=== PATIENT | female | born 1955 | race Caucasian/White ===

== ENCOUNTER 2018-12-24 19:00 | Outpatient (CLI) | payer MEDICAID ==
[2015-02-03 13:13] VITALS: BMI 30.6
[~2018-12-24 19:00] MED LIST: CYMBALTA60 MG PO; NEURONTIN 300300 MG PO; REQUIP4 MG PO
== END 2018-12-24 23:59 | disposition home or self-care (01) ==
LOC: D.MAMMO 19:00
PROVIDERS: ATTEND Family Medicine
DX: Z12.31 Encounter for screening mammogram for malignant neoplasm of breast (principal)

== ENCOUNTER 2019-01-21 17:49 | Outpatient (CLI) | payer MEDICAID ==
[2015-02-03 13:13] VITALS: BMI 30.6
== END 2019-01-21 17:50 | disposition home or self-care (01) ==
LOC: D.MAMMO 17:49
PROVIDERS: ATTEND Family Medicine
DX: R92.8 Other abnormal and inconclusive findings on diagnostic imaging of breast (principal)

== ENCOUNTER 2019-02-11 05:00 | Inpatient (IN) | payer MEDICAID ==
[2019-02-10 10:06] LABS: BASOPHILS 0.5 % (0-2); EOSINOPHILS 2.7 % (0-7); HEMATOCRIT 40.9 % (36.0-48.0); HEMOGLOBIN 13.6 g/dL (12-16); IMMATURE GRANULOCYTES 0.5 % (0-5); LYMPHOCYTES 34.4 % (15-50); MCH 31.9 pg (26.0-34.0); MCHC 33.3 g/dL (31.0-37.0); MEAN PLATELET VOLUME 8.8 fL (7.4-10.4); MONOCYTES 6.9 % (2-11); PLATELET COUNT 267 10x3/uL (130-400); RBC 4.26 10x6/uL (4.00-5.40); RDW 13.7 % (11.5-14.5); WBC 9.4 10x3/uL (4.8-10.8)
[2019-02-10 10:16] LABS: APPEARANCE CLEAR (CLEAR); BILIRUBIN NEGATIVE (NEGATIVE); COLOR STRAW (YELLOW); GLUCOSE NEGATIVE (NEGATIVE); KETONE NEGATIVE (NEGATIVE); NITRITE NEGATIVE (NEGATIVE); PROTEIN NEGATIVE (NEGATIVE); SPECIFIC GRAVITY 1.005 (1.005-1.020); UROBILINOGEN NORMAL (NORMAL)
[2019-02-10 10:19] LABS: APTT 27.3 SECONDS (22.8-39.4); INR 1.09 (0.85-1.17); PROTIME 13.6 SECONDS (11.6-15.0)
[2019-02-10 10:26] LABS: CALC OSMOLALITY 281 mosm/kg (275-300); CALCIUM 9.1 mg/dL (8.5-10.1); CARBON DIOXIDE 28.4 mmol/L (21.0-32.0); CHLORIDE - SERUM 105 mmol/L (98-107); CREATININE - SERUM 0.7 mg/dL (0.6-1.3); GLUCOSE 103 mg/dL (74-106); POTASSIUM - SERUM 4.2 mmol/L (3.5-5.1); SODIUM 141 mmol/L (136-145); UREA NITROGEN 16 mg/dL (7-18); eGFR NON AFRICAN AMERICAN 90 mL/min (90-120)
[2019-02-10 19:11] LABS: ALBUMIN 3.6 g/dL (3.4-5.0); ALKALINE PHOSPHATASE 138 U/L (46-116); ALT (SGPT) 32 U/L (10-68); BILIRUBIN - TOTAL 0.16 mg/dL (0.2-1.3); PROTEIN - SERUM 7.9 g/dL (6.4-8.2)
[2019-02-11] VITALS (7 sets, daily range): BP systolic 100–129; BP diastolic 58–67; BMI 29.6; BMI 28.4
[~2019-02-11 05:00] MED LIST changes: +IBUPROFEN200 MG PO
--- NOTE | 2019-02-11 15:15 | OP ---
PATIENT NAME: DANIELLE LINDSEY MEDICAL RECORD: [id number] :57 LOCATION:D.MS [id number] ADMISSION DATE:02/11/19 SURGEON: SALVATORE ASCENCIO DO DATE OF OPERATION: 02/11/2019 PROCEDURE PERFORMED: Right reverse total shoulder. PREOPERATIVE DIAGNOSIS: Right shoulder rotator cuff arthropathy. POSTOPERATIVE DIAGNOSES: Right shoulder rotator cuff arthropathy with intraoperative humeral shaft fracture. INDICATIONS: Ms. Lindsey is a 64-year-old right-hand dominant patient who had an MRI, which showed a rotator cuff tear and she also had on x-ray severe osteoarthritis of the shoulder. The rotator cuff tear was on the supraspinatus, it was retracted. I informed her that my nurse practitioner has seen her and that due to her arthritis and the rotator cuff tear and retraction, a reverse would be the best option for her. She was okay with that and was aware of the risks and benefits of the procedure including fracture, infection, bleeding, damage to nerves and vessels, and need for further surgery and she signed the consent. SURGEON: Salvatore Ascencio DO NUCLEAR MEDICINE TECHNOLOGIST: I was assisted by Vargas Arreola, advancement nurse practitioner. This could not have been performed without his help. He helped with retraction and closing. DESCRIPTION OF PROCEDURE: The patient was given a block by anesthesia in the preoperative area and taken to the operative suite, given 900 mg clindamycin. A timeout was performed, everyone was in agreement with the correct side, site, patient, and procedure. She was positioned on the beach chair table. She had been intubated prior to positioning. Once timeout had been performed and she was prepped and draped in the right shoulder, incision began over the deltopectoral interval. Careful dissection was made down to the interval. The adhesions were then taken out from under the deltoid with a Gonzalez and then the Brown retractor was placed there. The bicep tendon after the clavipectoral fascia was released. Biceps tendon was encountered and tagged and tied to the stump of the pec. The pec was released to a proximal centimeter or so and then the bicep was taken out. It opened up the rotator interval at that time and the subscapularis tendon was tagged. Once it was tagged, it was peeled off the humerus and opened up the osteophytes that were then removed off the inferior humeral head and then the glenoid was exposed. Once the glenoid was exposed, labrum was removed as well as the biceps tendon that was left and then centering pin was used to center in the glenoid. The reamer was then used and the baseplate hole was drilled, measured to be a 35. The 35 mm, 6.5 screw was put in with a 25 baseplate. This had good bite and then 3 peripheral screws were put in superiorly 26, anteriorly 18, and posteriorly 22. We then used the reamer around that to ensure the lateralized sphere would fit, it did. The lateralized sphere was then impacted on and screwed into place. The humerus was then exposed. Broaching began up to a 5, the 5 was trialled and reduced. Once it was reduced, getting the shoulder dislocated again, the humerus fractured just distal to the stem. Upon knowing that the stem was removed and the cables were placed around the humerus. I went to a fracture stem. The cement restrictor was then put down the canal, cemented down the canal, and the cement OPERATIVE REPORT [id number] DANIELLE LINDSEY came out of the fracture site. This was all removed. The stem was put into place. We did cement the proximal part of the stem and then the fracture was re-reduced once the stem was in and correctly positioned and the cement was hardening. Cables were placed around this prior. The fracture was reduced and then the cables were put around, 2, around the fracture site 1.6 cables. They became loose when the cement came down, one another cable was then placed around it after the stem had been put down and held into place. The fracture was reduced and then one of the previous cables were loose. This was cut. The other cable was left in place and then another cable, 2.0 cable, was put around the more proximal part of the shaft. This was very stable as well as the fracture, it was ranged. X-ray was taken and seems to have good reduction of the fracture and the stem was in good position. It did not move and it was reduced onto the glenosphere and then x-rays were taken to ensure the fracture, nondisplaced with the stem, it did not. She had good range of motion with this and any bleeding was coagulated with Aquamantys throughout the procedure. We then irrigated thoroughly. A drain was put in and Surgicel powder was put in as well as vancomycin, tobramycin powder. The incision did have to be extended to fix the fracture. The skin was then closed with 2-0 Vicryl in inverted interrupted fashion, 4-0 Monocryl ran on the skin and Prineo on the skin. The patient was awakened and taken to recovery in stable condition. Blood loss was approximately 200 mL. COMPLICATIONS: Intraoperative humeral shaft fracture. TRANSINT:[id number] Voice Confirmation ID: [id number] DOCUMENT ID: [id number] SALVATORE ASCENCIO DO at 1515 CC: [id number] DICTATION DATE: 02/11/19 1017 SENIOR SHAREPOINT ARCHITECT: 02/11/19 1503 ADM IN [facility] [address] [place] [address]
[2019-02-11 16:12] LABS: BASOPHILS 0.1 % (0-2); EOSINOPHILS 0 % (0-7); HEMATOCRIT 35.9 % (36.0-48.0); HEMOGLOBIN 11.7 g/dL (12-16); IMMATURE GRANULOCYTES 0.3 % (0-5); LYMPHOCYTES 5.8 % (15-50); MCH 31.5 pg (26.0-34.0); MCHC 32.6 g/dL (31.0-37.0); MCV 96.5 fL (80.0-100.0); MEAN PLATELET VOLUME 9.1 fL (7.4-10.4); MONOCYTES 1.8 % (2-11); PLATELET COUNT 229 10x3/uL (130-400); RBC 3.72 10x6/uL (4.00-5.40); RDW 13.5 % (11.5-14.5)
[2019-02-11 16:22] LABS: WBC 14.3 10x3/uL (4.8-10.8)
[2019-02-11 16:38] LABS: ALBUMIN 2.9 g/dL (3.4-5.0); ANION GAP 12.6 mmol/L (8-16); BILIRUBIN - TOTAL 0.24 mg/dL (0.2-1.3); CARBON DIOXIDE 24.9 mmol/L (21.0-32.0); POTASSIUM - SERUM 4.5 mmol/L (3.5-5.1); PROTEIN - SERUM 6.3 g/dL (6.4-8.2)
[2019-02-12 05:09] VITALS: BP 121/60
[2019-02-12 05:18] LABS: BASOPHILS 0.1 % (0-2); EOSINOPHILS 0 % (0-7); HEMATOCRIT 34.2 % (36.0-48.0); IMMATURE GRANULOCYTES 0.3 % (0-5); LYMPHOCYTES 11.1 % (15-50); MCH 31.1 pg (26.0-34.0); MCHC 32.2 g/dL (31.0-37.0); MCV 96.6 fL (80.0-100.0); MEAN PLATELET VOLUME 9.4 fL (7.4-10.4); MONOCYTES 6.9 % (2-11); NEUTROPHILS 81.6 % (40-80); PLATELET COUNT 249 10x3/uL (130-400); RBC 3.54 10x6/uL (4.00-5.40); RDW 13.6 % (11.5-14.5); WBC 17.3 10x3/uL (4.8-10.8)
[2019-02-12 05:38] LABS: ALBUMIN 2.7 g/dL (3.4-5.0); ALKALINE PHOSPHATASE 111 U/L (46-116); ALT (SGPT) 62 U/L (10-68); BILIRUBIN - TOTAL 0.14 mg/dL (0.2-1.3); CALCIUM 7.6 mg/dL (8.5-10.1); CARBON DIOXIDE 26.9 mmol/L (21.0-32.0); CHLORIDE - SERUM 107 mmol/L (98-107); POTASSIUM - SERUM 3.9 mmol/L (3.5-5.1); PROTEIN - SERUM 6.1 g/dL (6.4-8.2); SODIUM 142 mmol/L (136-145); UREA NITROGEN 15 mg/dL (7-18)
[2019-02-12 06:07] LABS: CALC OSMOLALITY 290 mosm/kg (275-300); CREATININE - SERUM 0.7 mg/dL (0.6-1.3); GLUCOSE 221 mg/dL (74-106); eGFR NON AFRICAN AMERICAN 90 mL/min (90-120)
[2019-02-12 09:23] VITALS: BP 143/50
[2019-02-12 13:43] VITALS: BMI 28.3
[2019-02-12 14:17] VITALS: BP 156/84
[2019-02-12 18:07] VITALS: BP 138/68
[2019-02-12 20:07] LABS: APPEARANCE CLEAR (CLEAR); BILIRUBIN NEGATIVE (NEGATIVE); COLOR YELLOW (YELLOW); GLUCOSE NEGATIVE (NEGATIVE); KETONE NEGATIVE (NEGATIVE); NITRITE NEGATIVE (NEGATIVE); PROTEIN NEGATIVE (NEGATIVE); UROBILINOGEN NORMAL (NORMAL)
[2019-02-12 22:28] VITALS: BP 108/55
[2019-02-13 05:02] VITALS: BP 112/64
[2019-02-13 05:35] LABS: BASOPHILS 0.3 % (0-2); EOSINOPHILS 1.2 % (0-7); HEMATOCRIT 35.1 % (36.0-48.0); HEMOGLOBIN 11.4 g/dL (12-16); IMMATURE GRANULOCYTES 0.6 % (0-5); LYMPHOCYTES 23.6 % (15-50); MCH 31.7 pg (26.0-34.0); MCHC 32.5 g/dL (31.0-37.0); MCV 97.5 fL (80.0-100.0); MEAN PLATELET VOLUME 9.3 fL (7.4-10.4); MONOCYTES 7.1 % (2-11); NEUTROPHILS 67.2 % (40-80); PLATELET COUNT 253 10x3/uL (130-400); RDW 13.8 % (11.5-14.5)
[2019-02-13 06:09] LABS: ALBUMIN 2.8 g/dL (3.4-5.0); ALKALINE PHOSPHATASE 93 U/L (46-116); ALT (SGPT) 67 U/L (10-68); BILIRUBIN - TOTAL 0.37 mg/dL (0.2-1.3); CALCIUM 8.1 mg/dL (8.5-10.1); CARBON DIOXIDE 29.3 mmol/L (21.0-32.0); CHLORIDE - SERUM 106 mmol/L (98-107); CREATININE - SERUM 0.7 mg/dL (0.6-1.3); POTASSIUM - SERUM 4.2 mmol/L (3.5-5.1); PROTEIN - SERUM 6.4 g/dL (6.4-8.2); SODIUM 141 mmol/L (136-145); UREA NITROGEN 14 mg/dL (7-18); eGFR NON AFRICAN AMERICAN 90 mL/min (90-120)
[2019-02-13 06:11] LABS: CALC OSMOLALITY 282 mosm/kg (275-300); GLUCOSE 121 mg/dL (74-106)
[2019-02-13 08:20] VITALS: BP 161/55
[2019-02-13 12:26] VITALS: BP 139/62
[2019-02-13 14:44] VITALS: BP 155/58
--- NOTE | 2019-02-13 15:57 | MORECARE ---
CASE MANAGEMENT DISCHARGE SUMMARY PATIENT: DANIELLE GARCIA UNIT: [id number] ADM DATE: 02/11/19 AGE: 64 : 57 SEX: F ROOM/BED: D.2208 AUTHOR: SWAPNA WILL PHYSICIAN: REFERRING PHYSICIAN: SALVATORE ASCENCIO DO DATE OF SERVICE: 02/13/19 Discharge Plan Patient Name: DANIELLE GARCIA [facility] [facility] 1955 Planned Disposition: Home Anticipated Discharge Date: Discharge Date: Expected LOS: Initial Reviewer: [email or web address] Initial Review Date: 02/11/2019 Generated: 02/13/19 4:57 pm DCPIA - Discharge Planning Initial Assessment Updated by [email or web address]: Shabana Forte on 02/13/19 3:57 pm * Is the patient Alert and Oriented? Yes * How many steps to enter\exit or inside your home? ramp * PCP SATURNINO * Pharmacy [facility] [address] * Preadmission Environment Home with Family * ADLs Independent * Equipment Bedside Commode Cane Elevated Toliet Seat Rolling Walker Shower Chair Tub Bench Walker Wheelchair * List name and contact numbers for known caregivers / representatives who currently or will assist patient after discharge: ALEX (DAUGHTER) [phone] * Verbal permission to speak to the caregivers and representatives has been obtained from the patient. N/A * Community resources currently utilized None * Additional services required to return to the preadmission environment? No * Can the patient safely return to the preadmission environment? Yes * Has this patient been hospitalized within the prior 30 days at any hospital? No Patient Name: DANIELLE GARCIA Page 17792 at 1557 All edits/amendments must be made on the electronic document DICTATION DATE: 02/13/191556 SENIOR DATABASE ADMINISTRATOR: JOSÉ MIGUEL 02/13/191556 RPT#: [id number] DC DATE: STATUS: ADM IN [facility] [address] [place] [address] END OF REPORT
--- NOTE | 2019-02-13 16:07 | MORECARE ---
CASE MANAGEMENT DISCHARGE SUMMARY PATIENT: DANIELLE GARCIA UNIT: [id number] ADM DATE: 02/11/19 AGE: 64 : 57 SEX: F ROOM/BED: D.2208 AUTHOR: NICOLETTE,DOC PHYSICIAN: REFERRING PHYSICIAN: SALVATORE ASCENCIO DO DATE OF SERVICE: 02/13/19 Discharge Plan Patient Name: DANIELLE GARCIA [facility]:[place] : 1955 Planned Disposition: Home Anticipated Discharge Date: Discharge Date: Expected LOS: Initial Reviewer: [email or web address] Initial Review Date: 02/11/2019 Generated: 02/13/19 5:06 pm Comments DCP- Discharge Planning Updated by [email or web address]: Shabana Forte on 02/13/19 3:[address] Patient Name: DANIELLE GARCIA Admission Status: Elective Accout number: [id number] Admission Date: 02-11-2019 : 1955 Admission Diagnosis: Attending: SALVATORE ASCENCIO Current LOS: 2 Anticipated DC Date: Planned Disposition: Home [place] Insurance: [place] [employer] [place] Discharge Planning Comments: CM met with patient to complete initial dc planning assessment. CM educated patient on the CM role and verbal consent given by patient to complete assessment. Patient lives at home with her adult son, where she is independent with her care. At discharge patient plans to return home and feels this is a safe discharge. CM discussed availability of home health, rehab services, and medical equipment. She stated that she has BSC, Cane, walker, shower lucian at home. Patient denied known discharge needs at this time. CM will continue to follow and will assist as needed with dc plans/needs. Construction Carpenter: hSabana Forte DCPIA - Discharge Planning Initial Assessment Updated by [email or web address]: Shabana Forte on 02/13/19 3:57 pm * Is the patient Alert and Oriented? Yes * How many steps to enter\exit or inside your home? ramp * PCP SATURNINO * [facility] [address] * Preadmission Environment Home with Family * ADLs Independent * Equipment Bedside Commode Cane Elevated Toliet Seat Rolling Walker Shower Chair Tub Bench Walker Wheelchair * List name and contact numbers for known caregivers / representatives who currently or will assist patient after discharge: ALEX (DAUGHTER) [phone] * Verbal permission to speak to the caregivers and representatives has been obtained from the patient. N/A * Community resources currently utilized None * Additional services required to return to the preadmission environment? No * Can the patient safely return to the preadmission environment? Yes * Has this patient been hospitalized within the prior 30 days at any hospital? No Last DP export: 02/13/19 2:57 p Patient Name: DANIELLE GARCIA Page 62555 at 1607 All edits/amendments must be made on the electronic document DICTATION DATE: 02/13/19 160 GLUER MACHINE OPERATOR: JOSÉ MIGUEL 02/13/19 160 RPT#: [id number] DC DATE: STATUS: ADM IN [facility] [address] [place] [address] END OF REPORT
[2019-02-13 20:52] VITALS: BP 129/59
[2019-02-14 01:02] VITALS: BP 124/64
[2019-02-14 03:56] LABS: HEMOGLOBIN 10.2 g/dL (12-16); MCH 31.8 pg (26.0-34.0); MCHC 32.9 g/dL (31.0-37.0); MCV 96.6 fL (80.0-100.0); MEAN PLATELET VOLUME 9.9 fL (7.4-10.4); RBC 3.21 10x6/uL (4.00-5.40); RDW 13.9 % (11.5-14.5); WBC 13.7 10x3/uL (4.8-10.8)
[2019-02-14 03:58] LABS: PLATELET COUNT 187 10x3/uL (130-400)
[2019-02-14 04:09] LABS: ALBUMIN 2.6 g/dL (3.4-5.0); ALKALINE PHOSPHATASE 93 U/L (46-116); ALT (SGPT) 65 U/L (10-68); BILIRUBIN - TOTAL 0.55 mg/dL (0.2-1.3); CALC OSMOLALITY 280 mosm/kg (275-300); CALCIUM 8.2 mg/dL (8.5-10.1); CARBON DIOXIDE 28.2 mmol/L (21.0-32.0); CHLORIDE - SERUM 103 mmol/L (98-107); CREATININE - SERUM 0.8 mg/dL (0.6-1.3); GLUCOSE 162 mg/dL (74-106); POTASSIUM - SERUM 4.1 mmol/L (3.5-5.1); PROTEIN - SERUM 5.7 g/dL (6.4-8.2); SODIUM 138 mmol/L (136-145); UREA NITROGEN 15 mg/dL (7-18); eGFR NON AFRICAN AMERICAN 77 mL/min (90-120)
[2019-02-14 04:18] LABS: EOSINOPHILS 3 % (0-7); LYMPHOCYTES 21 % (15-50); MONOCYTES 8 % (2-11); NEUTROPHILS 68 % (40-80); PLATELET ESTIMATE NORMAL
[2019-02-14 04:54] VITALS: BP 139/63
[2019-02-14] MEDS ORDERED: DILAUDID4 MG PO (06:31)
[2019-02-14] MEDS ORDERED: VISTARIL50 MG PO (06:31)
[2019-02-14 07:59] VITALS: BP 136/65
== END 2019-02-14 09:22 | disposition home or self-care (01) | DRG 483 ==
LOC: D.SDCHOLD 05:00 → D.MS 10:57 → D.SDCHOLD 14:22 → D.MS 14:24
PROVIDERS: Internal Medicine Nephrology; ADMIT Orthopaedic Surgery
PROC: 0RRJ00Z Replacement of Right Shoulder Joint with Reverse Ball and Socket Synthetic Substitute, Open Approach (ICD-10-PCS; principal; 2019-02-11 07:30)
DX: M19.011 Primary osteoarthritis, right shoulder (principal); M96.89 Other intraoperative and postprocedural complications and disorders of the musculoskeletal system; S42.301A Unspecified fracture of shaft of humerus, right arm, initial encounter for closed fracture; F17.213 Nicotine dependence, cigarettes, with withdrawal; X58.XXXA Exposure to other specified factors, initial encounter; G62.9 Polyneuropathy, unspecified

== ENCOUNTER 2019-02-17 09:20 | Emergency (ER) | payer MEDICAID ==
[~2019-02-17] VITALS: Ht 160 cm; Wt 81.8 kg
[~2019-02-17 09:20] MED LIST changes: +DILAUDID4 MG PO; +VISTARIL50 MG PO
[2019-02-17 09:23] VITALS: Ht 160 cm; Wt 81.8 kg
[2019-02-17 10:44] LABS: ALBUMIN 2.8 g/dL (3.4-5.0); ALKALINE PHOSPHATASE 143 U/L (46-116); ALT (SGPT) 120 U/L (10-68); BILIRUBIN - TOTAL 0.42 mg/dL (0.2-1.3); CALC OSMOLALITY 281 mosm/kg (275-300); CARBON DIOXIDE 29.2 mmol/L (21.0-32.0); CHLORIDE - SERUM 104 mmol/L (98-107); CREATININE - SERUM 0.8 mg/dL (0.6-1.3); GLUCOSE 123 mg/dL (74-106); POTASSIUM - SERUM 4.2 mmol/L (3.5-5.1); PROTEIN - SERUM 6.7 g/dL (6.4-8.2); SODIUM 140 mmol/L (136-145); UREA NITROGEN 17 mg/dL (7-18); eGFR NON AFRICAN AMERICAN 77 mL/min (90-120)
[2019-02-17 11:35] LABS: HEMATOCRIT 36.1 % (36.0-48.0); HEMOGLOBIN 12.2 g/dL (12-16); LYMPHOCYTES 26.8 % (15-50); MCHC 33.8 g/dL (31.0-37.0); MCV 94.8 fL (80.0-100.0); MEAN PLATELET VOLUME 8.6 fL (7.4-10.4); NEUTROPHILS 64.4 % (40-80); PLATELET COUNT 269 10x3/uL (130-400); RBC 3.81 10x6/uL (4.00-5.40); RDW 12.8 % (11.5-14.5); WBC 9.6 10x3/uL (4.8-10.8)
[2019-02-17] MEDS ORDERED: SULFAMETHOXAZOL1 TA3 PO (11:59)
[2019-02-17 12:25] VITALS: BP 132/46
== END 2019-02-17 12:25 | disposition home or self-care (01) ==
LOC: D.ER 09:20
PROVIDERS: Family Medicine
DX: G89.18 Other acute postprocedural pain (principal); Z86.19 Personal history of other infectious and parasitic diseases; F17.200 Nicotine dependence, unspecified, uncomplicated; K21.9 Gastro-esophageal reflux disease without esophagitis

== ENCOUNTER 2019-05-17 14:22 | Emergency (ER) | payer MEDICAID ==
[~2019-05-17] VITALS: Ht 160 cm; Wt 77.3 kg
[~2019-05-17 14:22] MED LIST changes: +SULFAMETHOXAZOL1 TA3 PO
[2019-05-17 14:24] VITALS: Ht 160 cm; Wt 77.3 kg
[2019-05-17 15:49] VITALS: BP 132/72
== END 2019-05-17 15:50 | disposition home or self-care (01) ==
LOC: D.ER 14:22
DX: M79.601 Pain in right arm (principal)

== ENCOUNTER → 2019-06-06 07:45 | Outpatient (CLI) | payer MEDICAID ==
[2019-05-17 14:24] VITALS: BMI 30.1
== END | disposition home or self-care (01) ==
LOC: D.MRI 07:45
PROVIDERS: ATTEND Orthopaedic Surgery
DX: M54.12 Radiculopathy, cervical region (principal)

== ENCOUNTER 2019-08-27 21:53 | Emergency (ER) | payer MEDICAID ==
[~2019-08-27] VITALS: Ht 160 cm; Wt 78.2 kg
[2019-08-27 21:57] VITALS: Ht 160 cm; Wt 78.2 kg
[2019-08-27] MEDS ORDERED: OMEPRAZOLE20 M1 PO (21:58)
[2019-08-27] MEDS ORDERED: METFORMIN HCL500 M1 PO (21:59)
[2019-08-27] MEDS ORDERED: HYDROCODON-ACE1 EA10 PO (22:37)
[2019-08-27 22:45] VITALS: BP 144/76
== END 2019-08-27 22:47 | disposition home or self-care (01) ==
LOC: D.ER 21:53
DX: S40.011A Contusion of right shoulder, initial encounter (principal); W19.XXXA Unspecified fall, initial encounter; F17.210 Nicotine dependence, cigarettes, uncomplicated

== ENCOUNTER → 2020-03-12 07:44 | Outpatient (CLI) | payer BC ==
[2019-08-27 21:57] VITALS: BMI 30.5
[~2020-03-12 07:44] MED LIST changes: +HYDROCODON-ACE1 EA10 PO; +METFORMIN HCL500 M1 PO; +OMEPRAZOLE20 M1 PO
== END | disposition home or self-care (01) ==
LOC: D.NM 07:44
PROVIDERS: ATTEND Clinical Nurse Specialist Family Health
DX: M25.511 Pain in right shoulder (principal)

== ENCOUNTER → 2020-03-17 18:08 | Outpatient (CLI) | payer MEDICAID ==
[2019-08-27 21:57] VITALS: BMI 30.5
== END | disposition home or self-care (01) ==
LOC: D.LABREF 18:08
PROVIDERS: ATTEND Orthopaedic Surgery
DX: M19.011 Primary osteoarthritis, right shoulder (principal)

== ENCOUNTER 2020-03-18 13:23 | Inpatient (IN) | payer MEDICAID ==
[~2020-03-18] VITALS: Ht 160 cm; Wt 75.0 kg
[2020-04-02] MEDS ORDERED: ULTRAM50 MG PO (10:50)
[2020-04-02] MEDS ORDERED: PROZAC20 MG PO (10:58)
[2020-04-02 11:51] LABS: BASOPHILS 0.5 % (0-2); EOSINOPHILS 2.2 % (0-7); HEMATOCRIT 40.2 % (36.0-48.0); IMMATURE GRANULOCYTES 0.3 % (0-5); LYMPHOCYTES 35.4 % (15-50); MCH 31.2 pg (26.0-34.0); MCHC 32.3 g/dL (31.0-37.0); MCV 96.4 fL (80.0-100.0); MEAN PLATELET VOLUME 8.8 fL (7.4-10.4); MONOCYTES 6.7 % (2-11); NEUTROPHILS 54.9 % (40-80); PLATELET COUNT 291 10x3/uL (130-400); RBC 4.17 10x6/uL (4.00-5.40); RDW 13.5 % (11.5-14.5); WBC 9.6 10x3/uL (4.8-10.8)
[2020-04-02 12:02] LABS: BILIRUBIN NEGATIVE (NEGATIVE); GLUCOSE NEGATIVE (NEGATIVE); KETONE NEGATIVE (NEGATIVE); NITRITE POSITIVE (NEGATIVE); UROBILINOGEN NORMAL (NORMAL)
[2020-04-02 12:04] LABS: APTT 27.7 SECONDS (22.8-39.4); BACTERIA MANY /hpf (NEGATIVE); EPITHELIAL CELLS 0-5 /hpf (0-5); INR 1.03 (0.85-1.17); PROTIME 13.5 SECONDS (11.6-15.0); RED CELLS - URINE 0-5 /hpf (0-5)
[2020-04-02 12:08] LABS: CALC OSMOLALITY 278 mosm/kg (275-300); CALCIUM 9.3 mg/dL (8.5-10.1); CARBON DIOXIDE 26.7 mmol/L (21.0-32.0); CHLORIDE - SERUM 104 mmol/L (98-107); CREATININE - SERUM 0.8 mg/dL (0.6-1.3); GLUCOSE 101 mg/dL (74-106); POTASSIUM - SERUM 4.6 mmol/L (3.5-5.1); SODIUM 138 mmol/L (136-145); UREA NITROGEN 20 mg/dL (7-18); eGFR NON AFRICAN AMERICAN 76 mL/min (90-120)
[2020-04-06] VITALS (11 sets, daily range): BP systolic 91–134; BP diastolic 52–70; BMI 29.4
--- NOTE | 2020-04-06 10:15 | NUR ---
CAUTERY PAD PLACED ON LEFT FLANK. LOT #[id number] EXP. 08/25/2021. PATIENT WAS PREPPED FROM RIGHT SIDE OF NECK DOWN TO FINGERS WITH HIBICLENS AND ALCOHOL MIXTURE PRIOR TO CHLORAPREP.
--- NOTE | 2020-04-06 10:21 | NUR ---
PLASMA BLADE USED. SETTING ON 04/05. AQUAMANIS USED SETTING ON 170.
--- NOTE | 2020-04-06 11:44 | NUR ---
OPA IN AIRWAY ON ADMIT
--- NOTE | 2020-04-06 11:44 | NUR ---
SCOPE PATCH BEHIND RT EAR ON ADMIT
--- NOTE | 2020-04-06 11:50 | NUR ---
OPA OUT OPA OUT @3275
--- NOTE | 2020-04-06 12:40 | NUR ---
PATIENT RECIEVED VIA BED FROM PACU, ALERT AND ORIENTED X 4, VSS. SPO2 - 96% ON RA, BBS - CLEAR AND EQUAL. IV 20 GA TO LEFT FA INFUSING 1/2 NS AT 50 ML/HR WITH NO S/S OF INFILTRATION. RIGHT ARM IN IMMOBILIZER/SLING, STATES FINGERS ARE NUMB AND UNABLE TO MOVE FINGERS. SCDS ON. BRINDA DRAIN WITH BLOODY DRAINAGE NOTED TO RIGHT SHOULDER. HEAD TO TOE ASSESSMENT COMPLETED.
--- NOTE | 2020-04-06 13:35 | NUR ---
PATIENT ATE APPROXIMATELY 60% OF LUNCH. NO NEEDS AT THIS TIME. VSS.
--- NOTE | 2020-04-06 13:49 | NUR ---
PATIENT SITTING UP IN BED, WATCHING TV. NO NEEDS AT THIS TIME. NEURVASCULAR CHECKS COMPLETED TO RIGHT HAND STILL NUMB AND NOT ABLE TO MOVE FINGERS.
--- NOTE | 2020-04-06 14:23 | NUR ---
PATIENT WATCHING TV, RATES PAIN 0/10, REQUESTS PUDDING, GIVEN PUDDING SNACK PER REQEUST. NEUROVASCULAR CHECKS COMPLETED, RIGHT ARM/HAND REMAINS NUMB BUT ABLE TO MOVE FINGERS SLIGHTLY. NO NEEDS AT THIS TIME.
--- NOTE | 2020-04-06 14:48 | NUR ---
PATIENT ASSISTED TO BATHROOM, VOIDS APPROXIMATELY 250 ML OF URINE. BACK TO BED.
--- NOTE | 2020-04-06 15:21 | NUR ---
PATIENT WALKED 100 FT WITH PT, TOLERATED WELL. ASSISTED BACK TO BED. VSS. GIVEN MEDS PER MAR. NO NEEDS AT THIS TIME.
--- NOTE | 2020-04-06 16:26 | NUR ---
PATIENT ASSISTED TO BATHROOM, VOIDS AND THEN ASSISTED BACK TO BED. VSS. TOLERATED WELL.
[2020-04-06 16:58] LABS: BASOPHILS 0.2 % (0-2); EOSINOPHILS 0 % (0-7); HEMATOCRIT 37.5 % (36.0-48.0); HEMOGLOBIN 11.6 g/dL (12-16); IMMATURE GRANULOCYTES 0.4 % (0-5); LYMPHOCYTES 6.9 % (15-50); MCH 30.7 pg (26.0-34.0); MCHC 30.9 g/dL (31.0-37.0); MCV 99.2 fL (80.0-100.0); MEAN PLATELET VOLUME 8.7 fL (7.4-10.4); MONOCYTES 1.4 % (2-11); NEUTROPHILS 91.1 % (40-80); PLATELET COUNT 242 10x3/uL (130-400); RBC 3.78 10x6/uL (4.00-5.40); RDW 13.8 % (11.5-14.5); WBC 11.7 10x3/uL (4.8-10.8)
[2020-04-06 17:28] LABS: ALBUMIN 3.2 g/dL (3.4-5.0); ANION GAP 13.6 mmol/L (8-16); BILIRUBIN - TOTAL 0.16 mg/dL (0.2-1.3); CALCIUM 7.8 mg/dL (8.5-10.1); CARBON DIOXIDE 22.9 mmol/L (21.0-32.0); CREATININE - SERUM 1.1 mg/dL (0.6-1.3); POTASSIUM - SERUM 4.5 mmol/L (3.5-5.1); PROTEIN - SERUM 6.5 g/dL (6.4-8.2)
--- NOTE | 2020-04-06 18:10 | NUR ---
PATIENT ASSISTED UP TO BATHROOM, AND BACK TO BED AFTER VOIDING. EMPTIED 50 ML OF BLOODY DRAINAGE FROM DAVOL DRAIN. C/O HEADACHE 03/07, AIYANA MIXON WITH HOSPTALIST CONTACTED FOR ORDER.
--- NOTE | 2020-04-06 18:27 | NUR ---
SPOKE TO AGUILAR MIXON APRN REGARDING PATIENTS HEADACHE TO GIVE TYLENOL 650 MG Q6HP FOR PAIN OR FEVER. ORDER PLACED.
[2020-04-07 00:01] VITALS: BP 131/77
[2020-04-07 03:01] VITALS: BP 131/77; Ht 160 cm; Wt 75.0 kg
[2020-04-07 04:59] VITALS: BP 132/38
[2020-04-07 06:22] LABS: BASOPHILS 0.1 % (0-2); EOSINOPHILS 0 % (0-7); HEMATOCRIT 38.3 % (36.0-48.0); IMMATURE GRANULOCYTES 0.4 % (0-5); LYMPHOCYTES 13.1 % (15-50); MCH 30.5 pg (26.0-34.0); MCHC 31.3 g/dL (31.0-37.0); MEAN PLATELET VOLUME 9.2 fL (7.4-10.4); MONOCYTES 5.6 % (2-11); NEUTROPHILS 80.8 % (40-80); PLATELET COUNT 282 10x3/uL (130-400); RBC 3.94 10x6/uL (4.00-5.40); RDW 13.7 % (11.5-14.5)
[2020-04-07 06:37] LABS: MCV 97.2 fL (80.0-100.0); WBC 16.9 10x3/uL (4.8-10.8)
[2020-04-07 06:46] LABS: ALBUMIN 3.3 g/dL (3.4-5.0); BILIRUBIN - TOTAL 0.27 mg/dL (0.2-1.3); CALCIUM 8.2 mg/dL (8.5-10.1); CARBON DIOXIDE 26.2 mmol/L (21.0-32.0); POTASSIUM - SERUM 4.2 mmol/L (3.5-5.1)
--- NOTE | 2020-04-07 08:26 | NUR ---
PT ALERT X 4. BREATH SOUNDS CLEAR BILAT. DRESSING TO RIGHT SHOULDER CDI. DAVOL DRAIN IN PLACE BLOODY OUTPUT. SLING IN PLACE. IV TO LEFT FOREARM, DRESSING CDI. PT REPORTING PAIN OF 3/10, WILL CONTINUE TO MONITOR. BED LOW, CALL LIGHT IN REACH. NO OTHER NEEDS AT THIS TIME.
--- NOTE | 2020-04-07 08:41 | OP ---
PATIENT NAME: DANIELLE LINDSEY MEDICAL RECORD: [id number] :57 LOCATION:D. D.1211 ADMISSION DATE:04/06/20 SURGEON: FARRUKH ASCENCIO DO DATE OF OPERATION: 04/06/2020 PROCEDURE PERFORMED: Revision right reverse total shoulder arthroplasty. PREOPERATIVE DIAGNOSIS: Right proximal humerus nonunion fracture. POSTOPERATIVE DIAGNOSIS: Right proximal humerus nonunion fracture. INDICATIONS: Ms. Lindsey is a 65-year-old female who underwent a right reverse total shoulder arthroplasty approximately 14 months ago. During the procedure, she had a fracture intraoperatively. We put a long stem down and fracture stem and cemented around it. She was doing well until she fell at some point. She does not know when and then showed at my clinic in January and I saw that the stem had a toggle, had some windshield wipering, got a bone scan, indeed showed it was probably loose and that there is a non-healed fracture at the previous fracture site. I informed her that we should probably go in and take the stem out and put a stent past it and to try to get some kind of fixation as she would turn her arm and essentially the distal port was not connected to the proximal port due to the fracture. I informed her of the risks including infection, bleeding, damage to nerves and vessels, need for further surgery, continued pain, failure of implants and dislocation. She is okay with all that and signed a consent. SURGEON: Farrukh Ascencio DO DESCRIPTION OF PROCEDURE: The patient received a block by anesthesia in the preoperative area, taken to the operative suite, laid in supine position, given general anesthetic and LMA was placed. She was given 900 mg of clindamycin and a gram of TXA. We then prepped and draped the right shoulder. Prior to that, sitting her up in the beach chair position, a timeout was performed and everyone was in agreement with the correct side, site, patient and procedure. We then went over the old incision and careful dissection made down to the prosthesis. The proximal portion where the shoulder was then dislocated, removed the poly and removed the stem after loosening of the cement around it with flexible osteotomes. After removing the stem, the cables around it previously came off at the fracture site as there was no union whatsoever, two of them. The third one I kept an eye on, the most proximal portion. We then tied the guidewire down, got an x-ray to ensure we were in the canal and then reamed flexible reamers over it till a 9, then used a 9 reamer for the revision stem from [place] and got down to good bone on x-ray to ensure they were plenty past the fracture site and we were. We then put the trial in and trialed the prosthesis, it fit very well and had good range of motion and then we dislocated that and put the actual stem and after irrigating. This was reduced and she again had good range of motion and good stability distal to the fracture site. X-rays were taken, ensuring that the shoulder is in good position. We then irrigated with 10% Providine iodine and 500 mL of normal saline and irrigated that out with a liter of normal saline. I then put in a Radha powder and vancomycin and tobramycin powder, put in a drain and the site was closed by Cipriano Sánchez, certified surgical wet process miller head assistant, with 2-0 Vicryl in inverted interrupted fashion, 4-0 Monocryl running on the skin and then Prineo glue on the skin. She was dressed with Telfa and Tegaderm, and Tegaderm secured the drain in as well. She was then awakened and taken to recovery in stable condition. Blood loss OPERATIVE REPORT [id number] DANIELLE LINDSEY approximately 150 mL. COMPLICATIONS: None. TRANSINT:[id number] Voice Confirmation ID: [id number] DOCUMENT ID: [id number] FARRUKH ASCENCIO DO at 0841 CC: [id number] DICTATION DATE: 04/06/20 1145 ASSOCIATE BROKER: 04/06/20 3016 ADM IN [facility] [address] [place] [id number]
[2020-04-07 09:03] VITALS: BP 127/73
--- NOTE | 2020-04-07 13:14 | MORECARE ---
CASE MANAGEMENT DISCHARGE SUMMARY PATIENT: DANIELLE GARCIA UNIT: [id number] ADM DATE: 04/06/20 AGE: 65 : 57 SEX: F ROOM/BED: D.1211 AUTHOR: SWAPNA WILL PHYSICIAN: REFERRING PHYSICIAN: SALVATORE ASCENCIO DO DATE OF SERVICE: 04/07/20 Discharge Plan Patient Name: DANIELLE GARCIA [facility] [facility] 1955 Planned Disposition: Anticipated Discharge Date: 04/08/20 Discharge Date: Expected LOS: 2 Initial Reviewer: [email or web address] Initial Review Date: 04/06/2020 Generated: 04/07/20 2:14 pm Patient Name: DANIELLE GARCIA Page 87541 at 1314 All edits/amendments must be made on the electronic document DICTATION DATE: 04/07/20 1314 TIME CHECKER: JOSÉ MIGUEL 04/07/20 1314 RPT#: [id number] DC DATE: STATUS: ADM IN [facility] [address] [place] [address] END OF REPORT
[2020-04-07 13:58] LABS: BILIRUBIN NEGATIVE (NEGATIVE); GLUCOSE NEGATIVE (NEGATIVE); KETONE NEGATIVE (NEGATIVE); NITRITE NEGATIVE (NEGATIVE); UROBILINOGEN NORMAL (NORMAL)
--- NOTE | 2020-04-07 20:00 | NUR ---
ALERT SITTING UP IN BED, DENIES NEEDS AT THIS TIME, SEE SHIFT ASSESSMENT, SLING IN PLACE TO RIGHT ARM WITH JB WRAP INTACT, CALL LIGHT IN REACH
[2020-04-07 20:01] VITALS: BP 106/51
[2020-04-08 00:06] VITALS: BP 103/49
[2020-04-08 05:45] VITALS: BP 128/50
[2020-04-08] MEDS ORDERED: VISTARIL50 MG PO (07:43)
[2020-04-08] MEDS ORDERED: oxyCODONE IR PO (07:43)
[2020-04-08] MEDS ORDERED: DOXYCYCLINE HY100 M2 PO (07:44)
[2020-04-08 08:15] LABS: ALBUMIN 3.1 g/dL (3.4-5.0); ANION GAP 8.7 mmol/L (8-16); BILIRUBIN - TOTAL 0.3 mg/dL (0.2-1.3); CALCIUM 7.6 mg/dL (8.5-10.1); CARBON DIOXIDE 27.5 mmol/L (21.0-32.0); POTASSIUM - SERUM 4.2 mmol/L (3.5-5.1); PROTEIN - SERUM 6.1 g/dL (6.4-8.2)
--- NOTE | 2020-04-08 09:00 | MORECARE ---
CASE MANAGEMENT DISCHARGE SUMMARY PATIENT: DANIELLE GARCIA UNIT: [id number] ADM DATE: 04/06/20 AGE: 65 : 56 SEX: F ROOM/BED: D.1211 AUTHOR: SWAPNA WILL PHYSICIAN: REFERRING PHYSICIAN: SLAVATORE ASCENCIO DO DATE OF SERVICE: 04/08/20 Discharge Plan Patient Name: DANIELLE GARCIA [facility] : 1955 Planned Disposition: Anticipated Discharge Date: 04/08/20 Discharge Date: Expected LOS: 2 Initial Reviewer: [email or web address] Initial Review Date: 04/06/2020 Generated: 04/08/20 9:59 am Last DP export: 04/07/20 12:14 p Patient Name: DANIELLE GARCIA Page 54989 at 0900 All edits/amendments must be made on the electronic document DICTATION DATE: 04/08/20 0859 SENIOR CORE JAVA DEVELOPER: JOSÉ MIGUEL 04/08/20 0859 RPT#: [id number] DC DATE: STATUS: ADM IN [facility] [address] [place] [address] END OF REPORT
--- NOTE | 2020-04-08 09:06 | NUR ---
PT ALERT X 4. BREATH SOUNDS CLEAR BILAT. IV TO LEFT FOREARM DC'D, TIP INTACT. DRESSING TO RIGHT SHOULDER CDI, SLING IN PLACE. PT REPORTING PAIN OF 4/10, MEDICATED PER ORDERS, WILL CONTINUE TO MONITOR. FAMILY AT BEDSIDE. BED LOW, CALL LIGHT IN REACH. NO OTHER NEEDS AT THIS TIME.
--- NOTE | 2020-04-08 11:12 | NUR ---
DISCHARGE PAPERWORK SIGNED, ALL QUESTIONS ANSWERED. DRESSING CHANGED PER ORDERS, 5 ADDITIONAL DRESSINGS SENT HOME WITH PT. ESCORTED OUT VIA WHEELCHAIR.
--- NOTE | 2020-04-09 09:01 | MORECARE ---
CASE MANAGEMENT DISCHARGE SUMMARY PATIENT: DANIELLE GARCIA UNIT: [id number] ADM DATE: 04/06/20 AGE: 65 : 57 SEX: F ROOM/BED: D.1211 AUTHOR: SWAPNA WILL PHYSICIAN: REFERRING PHYSICIAN: SALVATORE ASCENCIO DO DATE OF SERVICE: 04/09/20 Discharge Plan Patient Name: DANIELLE GARCIA [facility]:[place] : 1955 Planned Disposition: Anticipated Discharge Date: 04/08/20 Discharge Date: 04/08/2020 Expected LOS: 2 Initial Reviewer: [email or web address] Initial Review Date: 04/06/2020 Generated: 04/09/20 10:00 am Last DP export: 04/08/20 8:00 a Patient Name: DANIELLE GARCIA Page 00479 at 0901 All edits/amendments must be made on the electronic document DICTATION DATE: 04/09/20900 SLEEP TECHNOLOGIST: JOSÉ MIGUEL 04/09/20900 RPT#: [id number] DC DATE:04/08/20 STATUS: DIS IN [facility] [address] [place] [address] END OF REPORT
--- NOTE | 2020-04-09 22:36 | MORECARE ---
CASE MANAGEMENT DISCHARGE SUMMARY PATIENT: DANIELLE GARCIA UNIT: [id number] ADM DATE: 04/06/20 AGE: 65 : 57 SEX: F ROOM/BED: D.1211 AUTHOR: NICOLETTE,DOC PHYSICIAN: REFERRING PHYSICIAN: SALVATORE ASCENCIO DO DATE OF SERVICE: 04/09/20 Discharge Plan Patient Name: DANIELLE GARCIA Facility: [facility]:[place] : 1955 Planned Disposition: Anticipated Discharge Date: 04/08/20 Discharge Date: 04/08/2020 Expected LOS: 2 Initial Reviewer: [email or web address] Initial Review Date: 04/06/2020 Generated: 04/09/20 11:35 pm Comments DCP- Discharge Planning Updated by [email or web address]: Keturah Andrade on 04/09/20 9:[address] Patient Name: DANIELLE GARCIA Admission Status: Elective Accout number: [id number] Admission Date: 04-06-2020 : 1955 Admission Diagnosis:UNSP FRACTURE OF UPPER END OF RIGHT HUMERUS, INIT Attending: SALVATORE ASCENCIO Current LOS: 2 Anticipated DC Date: 04-08-2020 Planned Disposition: Primary Insurance: [facility] [employer] Discharge Planning Comments: CM met with patient to complete initial dc planning assessment. CM educated patient on the CM role and verbal consent given by patient to complete assessment. Patient lives at home with family. Patient is independent. At discharge patient plans to return home and feels this is a safe discharge. CM discussed availability of home health, rehab services, and medical equipment. Patient will have family to transport home. Patient denied known discharge needs at this time. CM will continue to follow and will assist as needed with dc plans/needs. Assistant Professor Of Psychology: Keturah Andrade DCPIA - Discharge Planning Initial Assessment Updated by [email or web address]: Kteurah Andrade on 04/09/20 10:31 pm * Is the patient Alert and Oriented? Yes * How many steps to enter\exit or inside your home? * Preadmission Environment Home Alone * ADLs Independent * List name and contact numbers for known caregivers / representatives who currently or will assist patient after discharge: ELIEZER GHOTRA - DAUGHTER - [phone] * Verbal permission to speak to the caregivers and representatives has been obtained from the patient. Yes * Community resources currently utilized None * Additional services required to return to the preadmission environment? No * Can the patient safely return to the preadmission environment? Yes * Has this patient been hospitalized within the prior 30 days at any hospital? No Last DP export: 04/09/20 8:01 a Patient Name: DANIELLE GARCIA Page 09751 at 2236 All edits/amendments must be made on the electronic document DICTATION DATE: 04/09/202234 MARINE CARGO SURVEYOR: JOSÉ MIGUEL 04/09/202234 RPT#: [id number] DC DATE:04/08/20 STATUS: DIS IN [facility] [address] [place] [address] END OF REPORT
== END 2020-04-08 11:13 | disposition home or self-care (01) | DRG 483 ==
LOC: D.M3 04-06 06:00 → D.SDCHOLD 04-06 06:00 → D.M3 04-06 12:02
PROVIDERS: Emergency Medicine; Family Medicine; ADMIT Orthopaedic Surgery; ATTEND Orthopaedic Surgery
PROC: 0RPJ0JZ Removal of Synthetic Substitute from Right Shoulder Joint, Open Approach (ICD-10-PCS; 2020-04-06)
PROC: 0RRJ0J6 Replacement of Right Shoulder Joint with Synthetic Substitute, Humeral Surface, Open Approach (ICD-10-PCS; principal; 2020-04-06 08:30)
DX: S42.201A Unspecified fracture of upper end of right humerus, initial encounter for closed fracture (principal); F17.203 Nicotine dependence unspecified, with withdrawal; G62.9 Polyneuropathy, unspecified; H26.9 Unspecified cataract; B19.20 Unspecified viral hepatitis C without hepatic coma; K21.9 Gastro-esophageal reflux disease without esophagitis; G89.29 Other chronic pain; E11.9 Type 2 diabetes mellitus without complications; R20.2 Paresthesia of skin; R05 Cough

== ENCOUNTER 2020-05-22 19:39 | Emergency (ER) | payer MEDICAID ==
[~2020-05-22] VITALS: Ht 160 cm; Wt 75.9 kg
[~2020-05-22 19:39] MED LIST changes: +DOXYCYCLINE HY100 M2 PO; +PROZAC20 MG PO; +ULTRAM50 MG PO; +oxyCODONE IR PO
[2020-05-22 19:44] VITALS: BP 130/79; Ht 160 cm; Wt 75.9 kg
[2020-05-22] MEDS ORDERED: NAPROSYN500 MG PO (20:07)
[2020-05-22] MEDS ORDERED: HYDROCODON-ACE1 EAC7 PO (20:07)
== END 2020-05-22 20:21 | disposition home or self-care (01) ==
LOC: D.ER 19:39
DX: M25.512 Pain in left shoulder (principal); G58.9 Mononeuropathy, unspecified; E11.40 Type 2 diabetes mellitus with diabetic neuropathy, unspecified; K21.9 Gastro-esophageal reflux disease without esophagitis; Z79.84 Long term (current) use of oral hypoglycemic drugs

== ENCOUNTER 2020-07-25 11:56 | Emergency (ER) | payer MEDICAID ==
[~2020-07-25] VITALS: Ht 160 cm; Wt 75.9 kg
[~2020-07-25 11:56] MED LIST changes: +HYDROCODON-ACE1 EAC7 PO; +NAPROSYN500 MG PO
[2020-07-25 12:00] VITALS: Ht 160 cm; Wt 75.9 kg
[2020-07-25 12:51] LABS: BASOPHILS 0.4 % (0-2); EOSINOPHILS 2.7 % (0-7); HEMATOCRIT 38.7 % (36.0-48.0); HEMOGLOBIN 12.4 g/dL (12-16); IMMATURE GRANULOCYTES 0.6 % (0-5); LYMPHOCYTES 30.8 % (15-50); MCH 30.5 pg (26.0-34.0); MCV 95.1 fL (80.0-100.0); MEAN PLATELET VOLUME 8.6 fL (7.4-10.4); MONOCYTES 6.7 % (2-11); NEUTROPHILS 58.8 % (40-80); PLATELET COUNT 273 10x3/uL (130-400); RBC 4.07 10x6/uL (4.00-5.40); RDW 14.4 % (11.5-14.5); WBC 8.2 10x3/uL (4.8-10.8)
[2020-07-25 13:01] LABS: CALC OSMOLALITY 273 mosm/kg (275-300); CALCIUM 9.1 mg/dL (8.5-10.1); CARBON DIOXIDE 30.8 mmol/L (21.0-32.0); CHLORIDE - SERUM 103 mmol/L (98-107); CREATININE - SERUM 0.8 mg/dL (0.6-1.3); GLUCOSE 114 mg/dL (74-106); SODIUM 137 mmol/L (136-145); UREA NITROGEN 10 mg/dL (7-18); eGFR NON AFRICAN AMERICAN 76 mL/min (90-120)
[2020-07-25 13:07] LABS: ALBUMIN 3.1 g/dL (3.4-5.0); ALKALINE PHOSPHATASE 118 U/L (30-120); ALT (SGPT) 32 U/L (10-68); BILIRUBIN - TOTAL 0.13 mg/dL (0.2-1.3); C-REACTIVE PROTEIN 2.6 mg/dL (0.0-0.9)
[2020-07-25 13:57] LABS: ERYTHROCYTE SEDIMENTATION RATE 19 mm/hr (0-30)
[2020-07-25] MEDS ORDERED: MOBIC7.5 MG PO (14:24)
[2020-07-25 14:51] VITALS: BP 135/76
== END 2020-07-25 14:51 | disposition home or self-care (01) ==
LOC: D.ER 11:56
PROVIDERS: Family Medicine
DX: M79.601 Pain in right arm (principal); E11.40 Type 2 diabetes mellitus with diabetic neuropathy, unspecified; K21.9 Gastro-esophageal reflux disease without esophagitis; Z79.84 Long term (current) use of oral hypoglycemic drugs

== ENCOUNTER → 2020-07-26 15:06 | Outpatient (CLI) | payer MEDICAID ==
[2020-07-25 12:00] VITALS: BMI 29.6
[~2020-07-26 15:06] MED LIST changes: +MOBIC7.5 MG PO
== END | disposition home or self-care (01) ==
LOC: D.MRI 15:06
PROVIDERS: ATTEND Orthopaedic Surgery
DX: M25.561 Pain in right knee (principal)

== ENCOUNTER 2020-07-30 20:18 | Emergency (ER) | payer MEDICAID ==
[~2020-07-30] VITALS: Ht 160 cm; Wt 75.7 kg
[2020-07-30 20:47] VITALS: Ht 160 cm; Wt 75.7 kg
[2020-07-30 23:00] VITALS: BP 132/84
== END 2020-07-30 23:00 | disposition home or self-care (01) ==
LOC: D.ER 20:18
DX: M79.601 Pain in right arm (principal); M25.521 Pain in right elbow; E11.9 Type 2 diabetes mellitus without complications; K21.9 Gastro-esophageal reflux disease without esophagitis

== ENCOUNTER → 2020-08-05 07:45 | Outpatient (CLI) | payer MEDICAID ==
[2020-07-30 20:47] VITALS: BMI 29.6
== END | disposition home or self-care (01) ==
LOC: D.CT 07:45
PROVIDERS: ATTEND Nurse Practitioner Family
DX: S42.291K Other displaced fracture of upper end of right humerus, subsequent encounter for fracture with nonunion (principal)

== ENCOUNTER → 2020-08-13 08:14 | Outpatient (CLI) | payer MEDICAID ==
[2020-07-30 20:47] VITALS: BMI 29.6
== END | disposition home or self-care (01) ==
LOC: D.MRI 08:14
PROVIDERS: ATTEND Nurse Practitioner Family
DX: M54.12 Radiculopathy, cervical region (principal)

== ENCOUNTER 2020-12-10 08:00 | Outpatient (CLI) | payer MEDICAID ==
[~2020-12-10 08:00] MED LIST changes: +ALEVE220 MG PO; +BACLOFEN20 M1 PO; +CYCLOBENZAPRINE10 MG PO; +PREDNISONE50 MG PO; +VOLTAREN75 MG PO
[2020-12-10 10:09] LABS: BASOPHILS 0.4 % (0-2); EOSINOPHILS 1.6 % (0-7); HEMATOCRIT 39.2 % (36.0-48.0); HEMOGLOBIN 12.2 g/dL (12-16); IMMATURE GRANULOCYTES 1.5 % (0-5); LYMPHOCYTE ABS# 6.36 10x3/uL (1.18-3.74); LYMPHOCYTES 43.2 % (15-50); MCH 30.5 pg (26.0-34.0); MCHC 31.1 g/dL (31.0-37.0); MEAN PLATELET VOLUME 8.6 fL (7.4-10.4); MONOCYTES 6.9 % (2-11); NEUTROPHIL ABS# 6.81 10x3/uL (1.56-6.13); NEUTROPHILS 46.4 % (40-80); PLATELET COUNT 324 10x3/uL (130-400); RDW 13.8 % (11.5-14.5); WBC 14.7 10x3/uL (4.8-10.8)
[2020-12-10 10:12] LABS: APTT 23.5 SECONDS (22.8-39.4)
[2020-12-10 10:13] LABS: INR 1.1 (0.85-1.17); PROTIME 13.2 SECONDS (11.6-15.0)
[2020-12-10 10:33] LABS: CALC OSMOLALITY 281 mosm/kg (275-300); CALCIUM 8.7 mg/dL (8.5-10.1); CARBON DIOXIDE 26.2 mmol/L (21.0-32.0); CHLORIDE - SERUM 102 mmol/L (98-107); CREATININE - SERUM 0.8 mg/dL (0.6-1.3); GLUCOSE 136 mg/dL (74-106); POTASSIUM - SERUM 4.4 mmol/L (3.5-5.1); SODIUM 137 mmol/L (136-145); UREA NITROGEN 29 mg/dL (7-18); eGFR NON AFRICAN AMERICAN 76 mL/min (90-120)
[2020-12-10 10:55] LABS: NITRITE POSITIVE (NEGATIVE)
[2020-12-10 10:56] LABS: BACTERIA MANY HPF (NONE SEEN); BILIRUBIN NEGATIVE (NEGATIVE); KETONE NEGATIVE (NEGATIVE); SQUAMOUS EPITHELIAL 0-5 HPF (0-4); UROBILINOGEN NORMAL mg/dL (< 2); WHITE CELLS - URINE 0-5 HPF (0-4)
--- NOTE | 2020-12-10 11:08 | NUR ---
1105-UA AND CBC REPORTED TO DR. ASCENCIO.
[2020-12-21] MEDS ORDERED: CIPRO500 MG PO (15:04)
[2020-12-23 12:46] VITALS: BMI 31.5
== END 2020-12-10 08:01 | disposition home or self-care (01) ==
LOC: D.OPS 08:00 → EDSTATUS 12-14 12:30
PROVIDERS: ATTEND Orthopaedic Surgery
DX: T84.038D Mechanical loosening of other internal prosthetic joint, subsequent encounter (principal)

== ENCOUNTER 2020-12-22 05:00 | Inpatient (IN) | payer MEDICAID ==
[2020-12-22] VITALS (8 sets, daily range): BP systolic 100–117; BP diastolic 56–66; BMI 31.6
[~2020-12-22] VITALS: Ht 160 cm; Wt 80.7 kg
[~2020-12-22 05:00] MED LIST changes: +CIPRO500 MG PO
[2020-12-22 06:49] LABS: BASOPHILS 0.6 % (0-2); EOSINOPHILS 2.7 % (0-7); HEMATOCRIT 34.2 % (36.0-48.0); HEMOGLOBIN 10.9 g/dL (12-16); IMMATURE GRANULOCYTES 0.2 % (0-5); LYMPHOCYTE ABS# 3.06 10x3/uL (1.18-3.74); LYMPHOCYTES 29.1 % (15-50); MCH 30.4 pg (26.0-34.0); MCHC 31.9 g/dL (31.0-37.0); MCV 95.3 fL (80.0-100.0); MEAN PLATELET VOLUME 8.5 fL (7.4-10.4); MONOCYTES 6.5 % (2-11); NEUTROPHIL ABS# 6.41 10x3/uL (1.56-6.13); NEUTROPHILS 60.9 % (40-80); PLATELET COUNT 263 10x3/uL (130-400); RBC 3.59 10x6/uL (4.00-5.40); RDW 13.2 % (11.5-14.5); WBC 10.5 10x3/uL (4.8-10.8)
[2020-12-22 07:01] LABS: APTT 27.3 SECONDS (22.8-39.4); INR 1.17 (0.85-1.17); PROTIME 13.8 SECONDS (11.6-15.0)
[2020-12-22 07:02] LABS: D-DIMER-QUANTITATIVE 1.67 ug/mLFEU (0.20-0.54)
[2020-12-22 07:04] LABS: ALBUMIN 3.1 g/dL (3.4-5.0); ALKALINE PHOSPHATASE 108 U/L (30-120); ALT (SGPT) 31 U/L (10-68); BILIRUBIN - TOTAL 0.38 mg/dL (0.2-1.3); CALC OSMOLALITY 280 mosm/kg (275-300); CARBON DIOXIDE 26.6 mmol/L (21.0-32.0); CHLORIDE - SERUM 104 mmol/L (98-107); CREATININE - SERUM 0.8 mg/dL (0.6-1.3); GLUCOSE 136 mg/dL (74-106); POTASSIUM - SERUM 3.8 mmol/L (3.5-5.1); PROTEIN - SERUM 6.5 g/dL (6.4-8.2); SODIUM 138 mmol/L (136-145); UREA NITROGEN 20 mg/dL (7-18); eGFR NON AFRICAN AMERICAN 76 mL/min (90-120)
--- NOTE | 2020-12-22 07:22 | NUR ---
0640 PT HAS USED IODINE NASAL SWABS. UNABLE TO OBTAIN COVID/SARS SPECIMEN DUE TO NOSE HAVING IODINE IN NARES. DR ASCENCIO AWARE.
[2020-12-22 07:25] LABS: BACTERIA MANY HPF (NONE SEEN); BILIRUBIN NEGATIVE (NEGATIVE); KETONE NEGATIVE (NEGATIVE); NITRITE POSITIVE (NEGATIVE); SQUAMOUS EPITHELIAL OCC HPF (0-4); UROBILINOGEN NORMAL mg/dL (< 2)
--- NOTE | 2020-12-22 09:52 | NUR ---
PT RIGHT ARM CLEANSE WITH HIBECLENS AND ALCOHOL FROM NECK TO FINGERTIPS CIRCUMFERENTIALLY PRIOR TO PREP.SURGICAL ARM PREPPED FROM NECK TO FINGER TIPS CIRCUMFERENTIALLY WITH CHLORAPREP X2. RN IN STERILE ATTIRE TO PREP. TRAFFIC KEPT TO MINIMUM. GROUNDING PAD LEFT FLANK LOT # [id number] EXP [id number] PLASMA BLADE SET TO 6/8
--- NOTE | 2020-12-22 10:49 | NUR ---
PT HAS BEEN UNABLE TO CONTROL LILIYA LE MOVEMENT SINCE ARRIVAL TO PACU. DR JORGE CONSULTED FOR TREATMENT, ORDERS RECEIVED AND IMPLEMENTED
--- NOTE | 2020-12-22 11:36 | NUR ---
REQUIP ADMINISTERED PER ORDERS, PT UNABLE TO CONTROL LILIYA LE MOVEMENT, D/C TO MED III PER DR JORGE, ALL VSS.
--- NOTE | 2020-12-22 19:00 | NUR ---
RECEIVED SHIFT REPORT FROM SUSU RN, PT SITTING ON SIDE OF BED, INFORMED PT THAT I WILL BE BACK SHORTLY TO DO ASSESSMENT, PT VERBALIZES UNDERSTANDING, BLUE SOCKS PROVIDED AT THIS TIME
--- NOTE | 2020-12-22 19:35 | NUR ---
PT UP TO BR WITH ASSISTANCE, GAIT STEADY, VOIDED WITH NO DIFFICULTY, PT TO BED, DENIES FURTHER NEEDS OR PAIN
--- NOTE | 2020-12-22 20:23 | NUR ---
ASSESSMENT PER FLOW SHEET, VS OBTAINED, IV IN LEFT FA INTACT WITH NO REDNESS OR EDEMA INFUSING VIA PUMP PER MD ORDERS, SEE EMAR, DRESSING TO RIGHT SHOULDER CDI WITH NO DRAINAGE NOTED, ANTHONY DRAIN COMPRESSED, PT REPORTS FLATUS, NO BM, AND VOIDING WITH NO DIFFICULTY, PT USING I.S. INST, DENIES PAIN AT THIS TIME, REQUESTED AND SERVED FRESH H2O, DENIES FURTHER NEEDS
--- NOTE | 2020-12-22 21:45 | NUR ---
PT RESTING WITH EYES CLOSED, RESP QUIET, NO DISTRESS NOTED, LEFT UNDISTURBED AT THIS TIME
--- NOTE | 2020-12-22 22:53 | NUR ---
PT PHARMACY INFORMATICS SPECIALIST LIGHT, PT UP TO BR WITH ASSISTANCE, GAIT STEADY, VOIDED WITH NO DIFFICULTY, PT BACK TO BED, DENIES FURTHER NEEDS OR PAIN
[2020-12-23 00:27] VITALS: BP 123/58
--- NOTE | 2020-12-23 00:27 | NUR ---
PT AWAKE, SITTING ON SIDE OF BED, VS OBTAINED, PT HAS O2 OFF AT THIS TIME, BUT PLACES IT BACK ON AFTER ADM OF PAIN MED, PT POSITIONED SELF IN BED, RIGHT ARM ELEVATED ON PILLOW, DAVOL DRAIN COMPRESSED, PT DENIES FURTHER NEEDS
--- NOTE | 2020-12-23 01:15 | NUR ---
PT UP TO BR WITH ASSISTANCE, GAIT STEADY, PT VOIDED WITH NO DIFFICULTY, PT ALSO INCONT DUE TO COUGHING, COMPLETE BEDDING CHANGE DONE, ADULT BRIEFS AND CLEAN GOWN PROVIDED, PT BACK TO BED, VANCOMYCIN HUNG IVPB PER MD ORDERS, SEE EMAR, ICE PACK TO RIGHT SHOULDER, PT DENIES FURTHER NEEDS
--- NOTE | 2020-12-23 02:35 | NUR ---
PT TELETYPEWRITER OPERATOR LIGHT, REQUESTED AND PROVIDED EXTRA BLANKET AND SNACK, PT DENIES FURTHER NEEDS
[2020-12-23 04:43] VITALS: BP 114/57
--- NOTE | 2020-12-23 04:43 | NUR ---
PT FINANCIAL SUPERVISOR LIGHT, PT UP TO BR WITH ASSISTANCE, VOIDED WITH NO DIFFICULTY, PT BACK TO BED, DAVOL EMPTIED, PUMPS CLEARED, PT C/O PAIN, ADM PAIN MED PER MD ORDERS, SEE EMAR, PT DENIES FURTHER NEEDS
--- NOTE | 2020-12-23 06:54 | NUR ---
NEW BAG OF 1/2 NS HUNG AND ADM PROTONIX PO PER MD ORDERS, SEE EMAR
[2020-12-23 07:24] VITALS: BP 129/88
--- NOTE | 2020-12-23 07:45 | OP ---
PATIENT NAME: DANIELLE LINDSEY MEDICAL RECORD: [id number] :57 LOCATION:D. D.1210 ADMISSION DATE:12/22/20 SURGEON: FARRUKH ASCENCIO DO DATE OF OPERATION: 12/22/2020 PROCEDURE PERFORMED: Revision right reverse total shoulder arthroplasty. PREOPERATIVE DIAGNOSIS: Loosening of the right humeral stem. POSTOPERATIVE DIAGNOSIS: Loosening of the right humeral stem. INDICATIONS: Ms. Lindsey is a 65-year-old female who underwent reverse total shoulder 2 years ago that came loose and I culture it and it not being infected, then put a Revive stem down fully porous-coated that was done in 01/2020. In about June of last year, she was lifting something at work and felt a pop. When she felt a pop, she started to have pain. She was then watched. As she continued to have pain, I got x-rays and saw that the stem was loose. We said that we needed to revise this and she was okay with that. I told her we draw labs and make sure it was not infected. Her ESR and CRP were elevated. Having known that, I went in and told her we would do neutrophils per high power field and take cultures. She was okay with that and she is aware of the risk of this including infection, bleeding, loosening again, need for further surgery, continued pain, loss of motion of that shoulder and even . She was okay with all that and signed the consent. SURGEON: Farrukh Ascencio DO DESCRIPTION OF PROCEDURE: The patient received block by anesthesia in the preoperative area, was taken to the operative suite, laid in the supine position, sedated and intubated. She was given 900 mg of clindamycin. She was then positioned in the beach chair. The right shoulder was prepped and draped in sterile fashion, given a gram of TXA. A timeout was performed. Everyone was in agreement with the correct site, side, patient, and procedure. After she was prepped and draped, I then began by going through the old incision making careful dissection down to the humerus. The humeral stem was completely loose. I just pulled that out without any effort. The proximal bone had been tied that was then I removed that. At the same time, we took cultures and I sent off a piece of tissue for neutrophils per high power field and came back as 3 neutrophils per high power field, indicating it was not infected, but inflamed. I then removed all the devitalized tissue in the area, reamed with an 11, planned on putting 11 stem down with cement, and I tried initially to cement it; though the cement went down the canal, it came out. We then re-cemented and got cement down in the canal and around the implant and held it in the place while it dried. Had very good fixation at that time. I then trialed polys. Once we were at good height and good stability, as far as poly goes, put a retention poly and we put the actual poly in which I believe is +3 tray with a 12 poly. I then irrigated thoroughly, put in the 10% povidone-iodine, 500 mL of normal saline solution, let it sit in there for 3 minutes and irrigated that out with over a liter of normal saline. Cipriano Sánchez, certified surgical technology instructor, then put a drain in and closed with 2-0 Vicryl and put in Radha and vancomycin and tobramycin powder and put in a drain, closed the skin with 2-0 Vicryl in inverted interrupted fashion, 4-0 Monocryl running in the skin, Prineo glue, then Telfa and Tegaderm and then secured the drain in place with two Tegaderms. She was then awakened and taken to recovery room and put in a sling in stable position. Blood loss was approximately 200 mL. OPERATIVE REPORT [id number] DANIELLE LINDSEY COMPLICATIONS: None. TRANSINT:[id number] Voice Confirmation ID: [id number] DOCUMENT ID: [id number] FARRUKH ASCENCIO DO at 0745 CC: [id number] DICTATION DATE: 12/22/20 1109 BELL CLERK: 12/22/20 2158 ADM IN [facility] [address] [place] [address]
--- NOTE | 2020-12-23 08:05 | NUR ---
PT AWAKE, ALERT, AND ORIENTED. SITTING ON SIDE OF BED. STATES PAIN AT A 9 OUT OF 10. CL IN REACH. WCTM
[2020-12-23 09:00] LABS: HEMATOCRIT 30.2 % (36.0-48.0); HEMOGLOBIN 9.6 g/dL (12-16); LYMPHOCYTES 21.2 % (15-50); MCH 30.9 pg (26.0-34.0); MCHC 31.8 g/dL (31.0-37.0); MCV 97.1 fL (80.0-100.0); MEAN PLATELET VOLUME 8.6 fL (7.4-10.4); NEUTROPHILS 72.8 % (40-80); PLATELET COUNT 236 10x3/uL (130-400); RBC 3.11 10x6/uL (4.00-5.40); RDW 12.9 % (11.5-14.5)
[2020-12-23 09:11] LABS: WBC 14.7 10x3/uL (4.8-10.8)
[2020-12-23 09:26] LABS: ALBUMIN 2.9 g/dL (3.4-5.0); ALKALINE PHOSPHATASE 109 U/L (30-120); ALT (SGPT) 34 U/L (10-68); BILIRUBIN - TOTAL 0.23 mg/dL (0.2-1.3); CALCIUM 8.2 mg/dL (8.5-10.1); CHLORIDE - SERUM 105 mmol/L (98-107); CREATININE - SERUM 0.8 mg/dL (0.6-1.3); POTASSIUM - SERUM 4.1 mmol/L (3.5-5.1); PROTEIN - SERUM 5.8 g/dL (6.4-8.2); SODIUM 139 mmol/L (136-145); UREA NITROGEN 22 mg/dL (7-18); eGFR NON AFRICAN AMERICAN 76 mL/min (90-120)
[2020-12-23 09:27] LABS: CALC OSMOLALITY 285 mosm/kg (275-300); GLUCOSE 184 mg/dL (74-106)
[2020-12-23 11:48] VITALS: BP 128/87
--- NOTE | 2020-12-23 12:34 | NUR ---
DAVOL DRAIN REMOVED. TOLERATED WELL. STATED THERE WAS SOME PRESSURE UPON REMOVAL BUT THAT IT WAS OK. PT UP AD FRANCISCA. WALKED 150 FT WITH PT. STABLE. NOT A FALL RISK. WCTM
[2020-12-23 12:46] VITALS: Ht 160 cm; Wt 80.7 kg
[2020-12-23 15:52] VITALS: BP 103/50
--- NOTE | 2020-12-23 16:22 | NUR ---
RESTING IN BED WITH EYES OPEN, ALERT AND ORIENTED. NO CURRENT S/S OF DISTRESS, WILL CONT TO MONITOR.
--- NOTE | 2020-12-23 16:55 | MORECARE ---
CASE MANAGEMENT DISCHARGE SUMMARY PATIENT: DANIELLE GARCIA UNIT: [id number] ADM DATE: 12/22/20 AGE: 65 : 57 SEX: F ROOM/BED: D.1210 AUTHOR: NICOLETTE,DOC PHYSICIAN: REFERRING PHYSICIAN: SALVATORE ASCENCIO DO DATE OF SERVICE: 12/23/20 Discharge Plan Patient Name: DANIELLE GARCIA Facility: [facility]:[place] : 1955 Planned Disposition: Home Anticipated Discharge Date: Discharge Date: Expected LOS: Initial Reviewer: [id number] Initial Review Date: 12/22/2020 Generated: 12/23/20 5:54 pm Comments DCP- Discharge Planning Updated by [id number]: Keturah Andrade on 12/23/20 3:[address] Patient Name: DANIELLE GARCIA Admission Status: Elective Accout number: [id number] Admission Date: 12-22-2020 : 1955 Admission Diagnosis: Attending: SALVATORE ASCENCIO Current LOS: 1 Anticipated DC Date: Planned Disposition: Home Primary Insurance: [employer] [place] [employer] [place] Discharge Planning Comments: CM met with patient to complete initial dc planning assessment. CM educated patient on the CM role and verbal consent given by patient to complete assessment. Patient lives at home with family. Patient is independent. At discharge patient plans to return home and feels this is a safe discharge. CM discussed availability of home health, rehab services, and medical equipment. Patient will have family to transport home. Patient denied known discharge needs at this time. CM will continue to follow and will assist as needed with dc plans/needs. Social Media Senior Associate: Keturah Andrade DCPIA - Discharge Planning Initial Assessment Updated by [id number]: Keturah Andrade on 12/23/20 4:48 pm * Is the patient Alert and Oriented? Yes * How many steps to enter\exit or inside your home? ramp * PCP Haja * [facility] * Preadmission Environment Home with Family * ADLs Independent * Other Equipment binh berry * List name and contact numbers for known caregivers / representatives who currently or will assist patient after discharge: Geno Borjas daughter [phone] * Verbal permission to speak to the caregivers and representatives has been obtained from the patient. Yes * Community resources currently utilized None * Additional services required to return to the preadmission environment? No * Can the patient safely return to the preadmission environment? Yes * Has this patient been hospitalized within the prior 30 days at any hospital? No Patient Name: DANIELLE GARCIA Page [phone] at 1655 All edits/amendments must be made on the electronic document DICTATION DATE: 12/23/201654 SUSPENDER MAKER: JOSÉ MIGUEL 12/23/201654 RPT#: [id number] DC DATE: STATUS: ADM IN [facility] [address] [place] [address] END OF REPORT
--- NOTE | 2020-12-23 17:31 | NUR ---
PT REFUSED LINEN CHANGE. NO NEEDS AT THIS TIME. WCTM
[2020-12-23 19:56] VITALS: BP 125/58
--- NOTE | 2020-12-23 23:00 | NUR ---
TAKING OVER CARE OF THIS PT.
--- NOTE | 2020-12-24 01:00 | NUR ---
PT AWAKE WHEN I WAS IN ROOM HANGING HER ANTIBIOTIC. WE DISCUSSED HOW SHE MUST FOLLOW DR. HATFIELD AFTER THIS SURGERY. SHE STATED SHE DIDN'T IN THE PAST BUT WOULD NOW. SHE STATES SHE USES IS FREQUENTLY AND CAN PULL UP TO 1500 +. I EXPLAINED THE REASON FOR DOING THIS FAITHFULLY ESPECIALLY SINCE SHE IS A SMOKER. I GOT THE IMPRESSION THAT SHE IS NOT INTERESTED AT ALL IN QUITING SMOKING. SHE STATES THAT SHE IS GOING BACK TO SLEEP NOW. NO C/O OR ANY PAIN OR NEEDS.
--- NOTE | 2020-12-24 02:00 | NUR ---
CHECKED IN ON PT. I NOTICED THAT THE ANTIBIOTIC INFUSION WAS NOT DRIPPING. I RESTARTED IT AND WITHIN 2 MINUTES OF STARTING IT PT STATES HER ARM IS BURNING. I TOLD HER TO HANG ON A COUPLE OF MINUTES TO SEE IF THIS WOULD STOP. WITHIN 30 SECONDS SHE STATES ITS BURNING WORSE. THE IV WAS IMMEDIATELY TURNED OFF.
[2020-12-24 04:00] VITALS: BP 122/50
--- NOTE | 2020-12-24 04:00 | NUR ---
OLIVIA PEREZ IS TRYING TO RESTART PT IV. SHE ATTEMPTED TWICE AND STOPPED. A CALL WAS PUT IN TO MELLY TO COME DOWN TO TRY TO SEE IF SHE'D COME DOWN TO TRY TO RESTART.
--- NOTE | 2020-12-24 05:25 | NUR ---
OLIVIA RAHMAN GOT IV RESTARTED IN THE UPPER FORARM OF THE LEFT ARM. IV ANTIBIOTICS ARE NOW INFUSING. THE NEW IV IS A 20G.
[2020-12-24 06:20] LABS: BASOPHILS 0.2 % (0-2); HEMATOCRIT 28.7 % (36.0-48.0); HEMOGLOBIN 8.7 g/dL (12-16); IMMATURE GRANULOCYTES 0.5 % (0-5); LYMPHOCYTE ABS# 4.04 10x3/uL (1.18-3.74); LYMPHOCYTES 33.6 % (15-50); MCH 29.6 pg (26.0-34.0); MCHC 30.3 g/dL (31.0-37.0); MCV 97.6 fL (80.0-100.0); MEAN PLATELET VOLUME 8.9 fL (7.4-10.4); MONOCYTES 6.3 % (2-11); NEUTROPHIL ABS# 6.64 10x3/uL (1.56-6.13); NEUTROPHILS 55.4 % (40-80); PLATELET COUNT 266 10x3/uL (130-400); RBC 2.94 10x6/uL (4.00-5.40); RDW 13.6 % (11.5-14.5)
--- NOTE | 2020-12-24 06:22 | NUR ---
PT IS RESTING QUIETLY IN HER BED. NO C/O NOTED
[2020-12-24 06:38] LABS: ALBUMIN 2.8 g/dL (3.4-5.0); ALKALINE PHOSPHATASE 103 U/L (30-120); ALT (SGPT) 29 U/L (10-68); BILIRUBIN - TOTAL 0.15 mg/dL (0.2-1.3); CARBON DIOXIDE 27.6 mmol/L (21.0-32.0); CHLORIDE - SERUM 106 mmol/L (98-107); CREATININE - SERUM 0.7 mg/dL (0.6-1.3); POTASSIUM - SERUM 3.6 mmol/L (3.5-5.1); PROTEIN - SERUM 5.9 g/dL (6.4-8.2); SODIUM 140 mmol/L (136-145); eGFR NON AFRICAN AMERICAN 89 mL/min (90-120)
[2020-12-24 06:52] LABS: CALC OSMOLALITY 280 mosm/kg (275-300); GLUCOSE 134 mg/dL (74-106); UREA NITROGEN 12 mg/dL (7-18)
--- NOTE | 2020-12-24 07:53 | NUR ---
VANC UNCLAMPED AND RUNNING NOW. WILL RETIME. PT SITTING IN CHAIR. CL IN REACH. STATES PAIN IS A 9 OUT OF 10 AND THAT SHE LET IT GO TO LONG. HOPES "PAIN MEDICINE WILL KICK IN QUICKLY." ARM IN SLING. NO FURTHER NEEDS AT THIS TIME. WCTM
[2020-12-24 08:04] VITALS: BP 130/67
--- NOTE | 2020-12-24 12:41 | NUR ---
PT SITTING IN CHAIR. NO NEEDS AT THIS TIME. CL IN REACH. WCTM
[2020-12-24 12:45] VITALS: BP 129/52
[2020-12-24 16:22] VITALS: BP 117/52
--- NOTE | 2020-12-24 16:41 | NUR ---
PT SITTING UP ON SIDE OF BED. NO NEEDS AT THIS TIME. CL IN REACH. WCTM
[2020-12-24 20:00] VITALS: BP 129/58
--- NOTE | 2020-12-24 20:00 | NUR ---
IN PT ROOM TO GIVE MEDS. AT THIS TIME PT HAS AUDIBLE INSPIRATORY WHEEZES. HEART SOUNDS WNL, LUNGS SOUND CLEAR. PT IS VOIDING WELL WITHOUT DIFFICULTY. SKIN WARM AND DRY. IV IS IN HER LEFT BACK FOREARM AND INFUSING VANCOMYCIN. NO C/O OF BURNING FROM THE ANTIBIOTIC. IS UP AD FRANCISCA IN HER ROOM. SHE HAS HER RIGHT ARM IN A SLING. SHE STATES SHE DOES NOT HAVE ALOT OF PAIN AT THIS TIME BUT SHE KNOWS TO CALL IF SHE DOES.
[2020-12-24 20:30] VITALS: BP 129/58
--- NOTE | 2020-12-24 21:57 | NUR ---
PT IS SITTING UP ON THE SIDE OF HER BED WORKING PUZZLES. STILL NO C/O PAIN IN HER RIGHT SHOULDER.
--- NOTE | 2020-12-24 23:53 | NUR ---
PT IS RESTING QUIETLY IN BED. NO C/O OR NEEDS AT THIS TIME
--- NOTE | 2020-12-25 01:00 | NUR ---
CHECHED IN ON PT. SHE IS ASLEEP. RESPIRATIONS EVEN AND UNLABORED. SHE IS RESTING ON HER RIGHT SIDE.
[2020-12-25 04:00] VITALS: BP 118/51; BP 123/50
--- NOTE | 2020-12-25 04:10 | NUR ---
PT AWAKE FOR VS. SHE HAS NO C/O PAIN AND HAS NO NEEDS.
--- NOTE | 2020-12-25 06:00 | NUR ---
PO MED GIVEN TO PT. SHE IS ALREADY AWAKE DUE TO LAB DRAW. SHE IS WATCHING TV. NO C/O PAIN PT HAS NO NEEDS AT THIS TIME.
[2020-12-25 06:14] LABS: BASOPHILS 0.2 % (0-2); EOSINOPHILS 6.2 % (0-7); HEMATOCRIT 26.3 % (36.0-48.0); HEMOGLOBIN 8.1 g/dL (12-16); IMMATURE GRANULOCYTES 0.5 % (0-5); LYMPHOCYTE ABS# 2.83 10x3/uL (1.18-3.74); LYMPHOCYTES 31.1 % (15-50); MCH 29.7 pg (26.0-34.0); MCHC 30.8 g/dL (31.0-37.0); MCV 96.3 fL (80.0-100.0); MEAN PLATELET VOLUME 8.8 fL (7.4-10.4); MONOCYTES 7.4 % (2-11); NEUTROPHIL ABS# 4.97 10x3/uL (1.56-6.13); NEUTROPHILS 54.6 % (40-80); PLATELET COUNT 279 10x3/uL (130-400); RBC 2.73 10x6/uL (4.00-5.40); RDW 13.6 % (11.5-14.5); WBC 9.1 10x3/uL (4.8-10.8)
[2020-12-25 07:29] VITALS: BP 105/62
--- NOTE | 2020-12-25 07:30 | NUR ---
AWAKE AND ALERT. ORIENTED X3 NO C/O AT THIS TIME. NEURO CHECKS TO RIGHT ARM WNL. LUNGS ARE CLEAR BILATERALLY, NO COUGH NOTED. SKIN IS INTACT WITHOUT REDNESS EXCEPT INCISION TO RIGHT SHOULDER WHICH HAS A DRY INTACT DRESSING IN PLACE. ARM IS ALSO IN SLING ORDERED. SL TO LEFT FOREARM IS PATENT WITHOUT REDNESS AT INSERTION SITE. DENIES NEEDS.
[2020-12-25 07:41] LABS: ALBUMIN 2.7 g/dL (3.4-5.0); ALKALINE PHOSPHATASE 93 U/L (30-120); BILIRUBIN - TOTAL 0.22 mg/dL (0.2-1.3); CALCIUM 8.2 mg/dL (8.5-10.1); CARBON DIOXIDE 28.3 mmol/L (21.0-32.0); CHLORIDE - SERUM 105 mmol/L (98-107); CREATININE - SERUM 0.7 mg/dL (0.6-1.3); GLUCOSE 113 mg/dL (74-106); POTASSIUM - SERUM 3.6 mmol/L (3.5-5.1); PROTEIN - SERUM 5.8 g/dL (6.4-8.2); SODIUM 140 mmol/L (136-145); eGFR NON AFRICAN AMERICAN 89 mL/min (90-120)
[2020-12-25 07:46] LABS: ALT (SGPT) 39 U/L (10-68); CALC OSMOLALITY 277 mosm/kg (275-300); UREA NITROGEN 8 mg/dL (7-18)
[2020-12-25] MEDS ORDERED: VISTARIL50 MG PO (07:47)
[2020-12-25] MEDS ORDERED: PERCOCET 10-321 EAC1 PO (07:47)
--- NOTE | 2020-12-25 09:50 | MORECARE ---
CASE MANAGEMENT DISCHARGE SUMMARY PATIENT: DANIELLE GARCIA UNIT: [id number] ADM DATE: 12/22/20 AGE: 65 : 57 SEX: F ROOM/BED: D.1210 AUTHOR: NICOLETTE,DOC PHYSICIAN: REFERRING PHYSICIAN: SALVATORE ASCENCIO DO DATE OF SERVICE: 12/25/20 Discharge Plan Patient Name: DANIELLE GARCIA Facility: [facility]:[place] : 1955 Planned Disposition: Home Anticipated Discharge Date: Discharge Date: Expected LOS: Initial Reviewer: [email or web address] Initial Review Date: 12/22/2020 Generated: 12/25/20 10:49 am Comments DCP- Discharge Planning Updated by [email or web address]: Nedra Schneider on 12/25/20 8:[address] Patient Name: DANIELLE GARCIA Encounter No: [id number] : 1955 Primary Insurance: [employer] [facility] Anticipated DC Date: Planned Disposition: Home External Planned Provider: : DCP follow-up note: Patient and family in agreement with discharge plan. No changes to plan. Case management will follow and assist as needed. Nedra Schneider DCP- Discharge Planning Updated by [email or web address]: Keturah Andrade on 12/23/20 3:[address] Patient Name: DANIELLE GARCIA Admission Status: Elective Accout number: [id number] Admission Date: 12-22-2020 : 1955 Admission Diagnosis: Attending: SALVATORE ASCENCIO Current LOS: 1 Anticipated DC Date: Planned Disposition: Home Primary Insurance: [employer] [facility] Discharge Planning Comments: CM met with patient to complete initial dc planning assessment. CM educated patient on the CM role and verbal consent given by patient to complete assessment. Patient lives at home with family. Patient is independent. At discharge patient plans to return home and feels this is a safe discharge. CM discussed availability of home health, rehab services, and medical equipment. Patient will have family to transport home. Patient denied known discharge needs at this time. CM will continue to follow and will assist as needed with dc plans/needs. Correctional Program Officer: Keturah Andrade DCPIA - Discharge Planning Initial Assessment Updated by [email or web address]: Keturah Lupe on 12/23/20 4:48 pm * Is the patient Alert and Oriented? Yes * How many steps to enter\exit or inside your home? ramp * PCP Haja * [facility] * Preadmission Environment Home with Family * ADLs Independent * Other Equipment binh berry * List name and contact numbers for known caregivers / representatives who currently or will assist patient after discharge: Geno Borjas daughter [phone] * Verbal permission to speak to the caregivers and representatives has been obtained from the patient. Yes * Community resources currently utilized None * Additional services required to return to the preadmission environment? No * Can the patient safely return to the preadmission environment? Yes * Has this patient been hospitalized within the prior 30 days at any hospital? No Last DP export: 12/23/20 3:55 p Patient Name: DANIELLE GARCIA Page [id number] at 0950 All edits/amendments must be made on the electronic document DICTATION DATE: 12/25/20949 APPLICATIONS TESTER: JOSÉ MIGUEL 12/25/20949 RPT#: [id number] DC DATE: STATUS: ADM IN [facility] [address] [place] [address] END OF REPORT
--- NOTE | 2020-12-25 10:06 | NUR ---
DISCHARGED TO HOME. DRESSING TO RIGHT SHOULDER CHANGED AT THIS TIME. GIVEN 4 EXTRA DRESSINGS FOR HOME USE. INSTRUCTED IN CARE FOR SHOULDER, S/S OF INFECTION. DISCHARGE INSTRUCTIONS GIVEN BOTH VERBALLY AND WRITTEN. ALL QUESTIONS ANSWERED. PATIENT VERBALIZED UNDERSTANDING OF SAME. SL TO LEFT FOREARM D/C WITH CATHETER INTACT. WAITING ON RIDE TO D/C HOME.
--- NOTE | 2020-12-25 10:42 | NUR ---
DISCHARGED TO HOME AMBULATORY WITH FAMILY. ALL BELONGINGS WITH PATIENT.
--- NOTE | 2020-12-27 07:40 | MORECARE ---
CASE MANAGEMENT DISCHARGE SUMMARY PATIENT: DANIELLE GARCIA UNIT: [id number] ADM DATE: 12/22/20 AGE: 65 : 57 SEX: F ROOM/BED: D.1210 AUTHOR: NICOLETTE,DOC PHYSICIAN: REFERRING PHYSICIAN: SALVATORE ASCENCIO DO DATE OF SERVICE: 12/27/20 Discharge Plan Patient Name: DANIELLE GARCIA Facility: [facility]:[place] : 1955 Planned Disposition: Home Anticipated Discharge Date: Discharge Date: 12/25/2020 Expected LOS: Initial Reviewer: [email or web address] Initial Review Date: 12/22/2020 Generated: 12/27/20 8:39 am Comments DCP- Discharge Planning Updated by [email or web address]: Nedra Schneider on 12/25/20 8:[address] Patient Name: DANIELLE GARCIA Encounter No: [id number] : 1955 Primary Insurance: [employer] [facility] Anticipated DC Date: Planned Disposition: Home External Planned Provider: : DCP follow-up note: Patient and family in agreement with discharge plan. No changes to plan. Case management will follow and assist as needed. Nedra Schneider DCP- Discharge Planning Updated by [email or web address]: Keturah Andrade on 12/23/20 3:[address] Patient Name: DANIELLE GARCIA Admission Status: Elective Accout number: [id number] Admission Date: 12-22-2020 : 1955 Admission Diagnosis: Attending: SALVATORE ASCENCIO Current LOS: 1 Anticipated DC Date: Planned Disposition: Home Primary Insurance: [employer] [facility] Discharge Planning Comments: CM met with patient to complete initial dc planning assessment. CM educated patient on the CM role and verbal consent given by patient to complete assessment. Patient lives at home with family. Patient is independent. At discharge patient plans to return home and feels this is a safe discharge. CM discussed availability of home health, rehab services, and medical equipment. Patient will have family to transport home. Patient denied known discharge needs at this time. CM will continue to follow and will assist as needed with dc plans/needs. Boomboat Operator: Keturah Andrade DCPIA - Discharge Planning Initial Assessment Updated by [id number]: Keturah Andrade on 12/23/20 4:48 pm * Is the patient Alert and Oriented? Yes * How many steps to enter\exit or inside your home? ramp * PCP Haja * [facility] * Preadmission Environment Home with Family * ADLs Independent * Other Equipment binh berry * List name and contact numbers for known caregivers / representatives who currently or will assist patient after discharge: Geno Borjas daughter [phone] * Verbal permission to speak to the caregivers and representatives has been obtained from the patient. Yes * Community resources currently utilized None * Additional services required to return to the preadmission environment? No * Can the patient safely return to the preadmission environment? Yes * Has this patient been hospitalized within the prior 30 days at any hospital? No Last DP export: 12/25/20 8:50 a Patient Name: DANIELLE GARCIA Page [phone] at 0740 All edits/amendments must be made on the electronic document DICTATION DATE: 12/27/20739 HEMODIALYSIS CHARGE NURSE: JOSÉ MIGUEL 12/27/20739 RPT#: [id number] DC DATE:12/25/20 STATUS: DIS IN [facility] [address] [place] [address] END OF REPORT
== END 2020-12-25 10:43 | disposition home or self-care (01) | DRG 483 ==
LOC: D.OPS 05:00 → D.M3 10:03 → D.OPS 13:00 → D.M3 17:30 → D.OPS 17:30 → D.M3 12-25 10:43
PROVIDERS: Family Medicine; ADMIT Orthopaedic Surgery; ATTEND Orthopaedic Surgery
PROC: 0RRJ00Z Replacement of Right Shoulder Joint with Reverse Ball and Socket Synthetic Substitute, Open Approach (ICD-10-PCS; principal; 2020-12-22 07:00)
PROC: 0RPJ0JZ Removal of Synthetic Substitute from Right Shoulder Joint, Open Approach (ICD-10-PCS; 2020-12-22 07:00)
DX: T84.038A Mechanical loosening of other internal prosthetic joint, initial encounter (principal); Y83.9 Surgical procedure, unspecified as the cause of abnormal reaction of the patient, or of later complication, without mention of misadventure at the time of the procedure; G62.9 Polyneuropathy, unspecified; G25.81 Restless legs syndrome; K21.9 Gastro-esophageal reflux disease without esophagitis; F32.9 Major depressive disorder, single episode, unspecified; E66.9 Obesity, unspecified; G89.4 Chronic pain syndrome; Z68.31 Body mass index [BMI] 31.0-31.9, adult; Z72.0 Tobacco use

== ENCOUNTER 2021-01-17 13:03 | Inpatient (IN) | payer MEDICARE ==
[~2021-01-17] VITALS: Ht 160 cm; Wt 77.1 kg
--- NOTE | ~2021-01-17 | HEMODYNAMI ---
PATIENT:DANIELLE GARCIA MEDICAL RECORD: [id number] : 57 LOCATION:.CT D.2213 ADMISSION DATE: 01/17/21 Generatedon:19:04 Patient name: DANIELLE GARCIA Patient #: [id number] SSN: : Date of study: 01/18/2021 Page: Of Hemodynamic Procedure Report Patient Data Patient Demographics Procedure consent was obtained First Name: DANIELLE Gender: Female Last Name: RADHA : 1955 Middle Initial: R Age: 65 year(s) Patient #: [id number] Race: Unknown Additional ID: [id number] Contact details [address]: [address] [place] [address] State: [place] City: [place] Zip code: [address] Past Medical History Allergies Allergen Reaction Date Comments Reported Other allergy 01/18/2021 codeine, tramadol, gabapentin Admission Admission Data Admission Date: 01/17/2021 Admission Time: 14:01 Room #: [facility] Procedure Procedure Types Cath Procedure Peripheral Cath Diagnostic Procedure PICC PICC Line Placement Procedure Description Procedure Date Procedure Date: 01/18/2021 Procedure Start Time: 8:59 Procedure Staff Name Function Lg Keys MD Performing Physician NANCY MOCTEZUMA RT Monitor Dane Walton RT Scrub Sury Boyd RN Nurse Dafne Noe RN Nurse Procedure Data Cath Procedure Fluoroscopy Diagnostic fluoroscopy Total fluoroscopy Time: 0 time: 0 min min Diagnostic fluoroscopy Total fluoroscopy dose: 0 dose: 0 mGy mGy Hemodynamics Rest Pre Cath Intra NCS Post Cath Procedure Log Time Note 8:36:55 Use device set IR Diagnostic 8:36:56 Bag Decanter (2001S) opened to sterile field. 8:36:56 Sterile Angiographic Pack opened to sterile field. 8:36:57 Tegaderm 4 x 4 (1626W) opened to sterile field. 8:37:04 PowerPICC 5Fr double lumen catheter opened to sterile field. 8:45:14 Time tracking: Regular hours (M-F 7:00 - 5:00) 8:45:16 Dafne Noe RN sent for patient. Start room use. 8:45:24 Patient received from Med/Surg to IR Alert and oriented. Tansferred to table in Supine position. 8:45:25 Signed procedure consent form obtained from patient. 8:45:26 Pre-procedure instructions explained to patient. 8:45:47 Left Arm area was prepped with chlora-prep and draped in sterile fashion 8:48:04 Patient allergic to Other allergycodeine, tramadol, gabapentin 8:53:52 --------ALL STOP TIME OUT------ 8:53:52 Final Timeout: patient, procedure, and site verified with staff and physician. All members of the team are in agreement. 8:55:35 Sharps counted by scrub and verified by R.N. 8:56:36 Procedure started. 8:56:36 Full Disclosure recording started 8:59:12 Local anesthetic to left arm with Lidocaine 1% by Lg Keys MD.INITIAL ACCESS ONLY 8:59:13 Venous access obtained using ultrasound guidance. 9:00:28 PICC line was trimmed to 40cm and advanced to the superior vena cava.Position verified under fluoroscopy. 9:02:12 Procedure ended.(Physican Out) 9:02:41 Fluoroscopy time 00.00 minutes. 9:02:44 Fluoroscopy dose: 0 mGy 9:02:44 Flurop Dose total: 0 9:02:46 Sharps counted by scrub and verified by R.N. 9:02:52 Post-op/insertion site Left Axiliary dressed using a SorbaView Sheild and biopatch 9:03:17 Post procedure instruction explained to patient.Patient verbalizes understanding. 9:03:18 Procedure and supply charges have been captured, reviewed, submitted and are correct. 9:03:40 Patient transfered to Med/Surg with Wheelchair. 9:03:41 End room use (Document Last) Device Usage Item Name Manufacture Quantity Catalog Hospital Part Current Minimal Lot# / Number Charge Number Stock Stock Serial# Code Bag Decanter Microtek 1 [id number] 5 () [employer] Sterile Cardinal 1 [id number] 5 Angiographic Health Pack Tegaderm 4 x 3M 1 1626W [id number] 5 4 (1626W) [facility] [id number] 5 5Fr double lumen catheter Signature Audit [place] Stage Time Signature Unsigned Intra-Procedure 01/18/2021 NANCY MOCTEZUMA RT 9:04:02 AM (R) [facility] [address] [id number]
[~2021-01-17 13:03] MED LIST changes: +PERCOCET 10-321 EAC1 PO
[2021-01-17 14:19] VITALS: BMI 30.1
--- NOTE | 2021-01-17 14:30 | NUR ---
RCVED PT VIA WHEELCHAIR AND ADMISSION STAFF. V/S STABLE. ALERT AND ORIENTED, BREATHING EVEN AND NONLABORED. IV STARTED TO RIGHT FOREARM CURRENTLY RCVING NS @ 50ML/HR. NO CURRENT S/S OF DISTRESS, DENIES CURRENT NEEDS, WILL CONT TO MONITOR.
[2021-01-17 14:34] LABS: BASOPHILS 0.5 % (0-2); EOSINOPHILS 6.5 % (0-7); HEMATOCRIT 30.8 % (36.0-48.0); HEMOGLOBIN 9.3 g/dL (12-16); IMMATURE GRANULOCYTES 0.6 % (0-5); LYMPHOCYTE ABS# 3.62 10x3/uL (1.18-3.74); LYMPHOCYTES 37.6 % (15-50); MCH 27.8 pg (26.0-34.0); MCHC 30.2 g/dL (31.0-37.0); MCV 91.9 fL (80.0-100.0); MEAN PLATELET VOLUME 8.2 fL (7.4-10.4); MONOCYTES 7.4 % (2-11); NEUTROPHIL ABS# 4.57 10x3/uL (1.56-6.13); NEUTROPHILS 47.4 % (40-80); RBC 3.35 10x6/uL (4.00-5.40); RDW 14.7 % (11.5-14.5); WBC 9.6 10x3/uL (4.8-10.8)
[2021-01-17 14:42] LABS: PLATELET COUNT 359 10x3/uL (130-400)
[2021-01-17 14:58] LABS: ANION GAP 11.3 mmol/L (8-16); C-REACTIVE PROTEIN 1.5 mg/dL (0.0-0.9); CALCIUM 8.6 mg/dL (8.5-10.1); CARBON DIOXIDE 27.6 mmol/L (21.0-32.0); CREATININE - SERUM 0.9 mg/dL (0.6-1.3); POTASSIUM - SERUM 3.9 mmol/L (3.5-5.1)
[2021-01-17 15:40] LABS: ERYTHROCYTE SEDIMENTATION RATE 24 mm/hr (0-30)
[2021-01-17 16:01] VITALS: BP 112/59
--- NOTE | 2021-01-17 19:40 | NUR ---
PT SITTING UP ON SIDE OF BED, AOX4. DENIES PAIN OR NEEDS AT THIS TIME. CL IN REACH
[2021-01-17 20:00] VITALS: BP 132/69
[2021-01-18] VITALS: BP 123/46
[2021-01-18 04:00] VITALS: BP 110/42
[2021-01-18 06:13] LABS: BASOPHILS 0.5 % (0-2); EOSINOPHILS 10.2 % (0-7); HEMOGLOBIN 8.2 g/dL (12-16); IMMATURE GRANULOCYTES 0.7 % (0-5); LYMPHOCYTE ABS# 3.04 10x3/uL (1.18-3.74); LYMPHOCYTES 35.2 % (15-50); MCH 27.7 pg (26.0-34.0); MCHC 30.4 g/dL (31.0-37.0); MCV 91.2 fL (80.0-100.0); MEAN PLATELET VOLUME 8.5 fL (7.4-10.4); MONOCYTES 7.4 % (2-11); NEUTROPHIL ABS# 3.98 10x3/uL (1.56-6.13); PLATELET COUNT 354 10x3/uL (130-400); RBC 2.96 10x6/uL (4.00-5.40); RDW 14.7 % (11.5-14.5); WBC 8.6 10x3/uL (4.8-10.8)
[2021-01-18 06:29] LABS: CALC OSMOLALITY 283 mosm/kg (275-300); CALCIUM 7.8 mg/dL (8.5-10.1); CHLORIDE - SERUM 107 mmol/L (98-107); CREATININE - SERUM 0.8 mg/dL (0.6-1.3); GLUCOSE 121 mg/dL (74-106); POTASSIUM - SERUM 4.4 mmol/L (3.5-5.1); SODIUM 141 mmol/L (136-145); UREA NITROGEN 17 mg/dL (7-18); eGFR NON AFRICAN AMERICAN 76 mL/min (90-120)
--- NOTE | 2021-01-18 07:22 | NUR ---
ALERT AND ORIENTED. ASSESSMENT COMPLETE. DENIES NEEDS. BED LOW. CALL DIAZ AND PERSONAL ITEMS IN REACH. WILL CONTINUE TO MONITOR.
--- NOTE | 2021-01-18 08:13 | NUR ---
CONSENT ON CHART FOR PICC PLACEMENT. GOWN PLACED ON PATIENT PER IR REQUEST.
[2021-01-18 08:38] VITALS: BP 147/64
--- NOTE | 2021-01-18 09:22 | NUR ---
FELIX PICC PLACED PER IR AND OK TO USE. LFA PIV REMOVED WITH TIP INTACT.
[2021-01-18 12:15] VITALS: BP 169/66
--- NOTE | 2021-01-18 13:54 | NUR ---
URINE COLLECTED AND TAKEN TO LAB.
[2021-01-18 14:08] VITALS: Ht 160 cm; Wt 77.1 kg
[2021-01-18 14:23] LABS: UDS - AMPHET NEGATIVE QUAL (NEGATIVE); UDS - BARB NEGATIVE QUAL (NEGATIVE); UDS - BENZO NEGATIVE QUAL (NEGATIVE); UDS - COCAINE NEGATIVE QUAL (NEGATIVE); UDS - OPIATE NEGATIVE QUAL (NEGATIVE); UDS - PCP NEGATIVE QUAL (NEGATIVE); UDS - THC NEGATIVE QUAL (NEGATIVE)
[2021-01-18 14:28] LABS: BILIRUBIN NEGATIVE (NEGATIVE); KETONE NEGATIVE (NEGATIVE); NITRITE NEGATIVE (NEGATIVE); UROBILINOGEN NORMAL mg/dL (< 2)
[2021-01-18 14:29] LABS: SQUAMOUS EPITHELIAL 0-5 HPF (0-4); WHITE CELLS - URINE NONE SEEN HPF (0-4)
[2021-01-18 15:49] VITALS: BP 152/60
[2021-01-18 20:00] VITALS: BP 131/51
--- NOTE | 2021-01-18 20:00 | NUR ---
PT SITTING UP ON SIDE OF BED WITHOUT DISTRESS, AOX4. DENIES PAIN. PROVIDED ICE WATER. DENIES OTHER NEEDS. CL IN REACH
--- NOTE | 2021-01-19 03:00 | NUR ---
PT WOKE UP HUNGRY, PROVIDED SANDWICH TRAY. DENIES OTHER NEEDS. CL IN REACH
[2021-01-19 04:00] VITALS: BP 141/68
[2021-01-19 07:20] LABS: BASOPHILS 0.7 % (0-2); HEMATOCRIT 26.1 % (36.0-48.0); IMMATURE GRANULOCYTES 0.3 % (0-5); LYMPHOCYTE ABS# 2.82 10x3/uL (1.18-3.74); LYMPHOCYTES 32.3 % (15-50); MCH 27.8 pg (26.0-34.0); MCHC 30.7 g/dL (31.0-37.0); MCV 90.6 fL (80.0-100.0); MEAN PLATELET VOLUME 8.1 fL (7.4-10.4); MONOCYTES 7.9 % (2-11); NEUTROPHIL ABS# 4.35 10x3/uL (1.56-6.13); NEUTROPHILS 49.8 % (40-80); PLATELET COUNT 289 10x3/uL (130-400); RBC 2.88 10x6/uL (4.00-5.40); RDW 14.5 % (11.5-14.5); WBC 8.7 10x3/uL (4.8-10.8)
[2021-01-19 07:52] LABS: CALC OSMOLALITY 280 mosm/kg (275-300); CARBON DIOXIDE 24.7 mmol/L (21.0-32.0); CHLORIDE - SERUM 108 mmol/L (98-107); CREATININE - SERUM 0.7 mg/dL (0.6-1.3); GLUCOSE 110 mg/dL (74-106); POTASSIUM - SERUM 3.8 mmol/L (3.5-5.1); SODIUM 141 mmol/L (136-145); VANCOMYCIN - TROUGH 40.2 ug/mL (10.0-20.0); eGFR NON AFRICAN AMERICAN 89 mL/min (90-120)
[2021-01-19 08:00] LABS: UREA NITROGEN 11 mg/dL (7-18)
[2021-01-19 09:10] VITALS: BP 147/57
[2021-01-19 09:45] LABS: % SATURATION 2 % (15-55); IRON 10 ug/dl (35-150); TOTAL IRON BIND CAPACITY 356 ug/dl (260-445); UNSAT IRON BIND CAPACITY 346 ug/dl (150-375)
--- NOTE | 2021-01-19 10:03 | NUR ---
I have reviewed this patient and I concur with the Shift Assessment completed by the Licensed Practical Nurse today this shift.
[2021-01-19 12:35] VITALS: BP 132/42
--- NOTE | 2021-01-19 12:50 | NUR ---
PATIENT SITTING UP IN CHAIR AT BEDSIDE, NO S/S OF DISTRESS, NO NEEDS VOICED, CONTINUE WITH PLAN OF CARE
[2021-01-19 16:44] VITALS: BP 127/76
[2021-01-19 20:00] VITALS: BP 152/43
--- NOTE | 2021-01-19 20:00 | NUR ---
PT SITTING UP IN CHAIR WITHOUT DISTRESS, AOX4. REDNESS TO RIGHT UPPER ARM. DENIES PAIN OR NEEDS. CL IN REACH, WILL CTM
[2021-01-20 04:00] VITALS: BP 138/55
[2021-01-20 06:16] LABS: BASOPHILS 0.6 % (0-2); EOSINOPHILS 8.4 % (0-7); HEMATOCRIT 27.6 % (36.0-48.0); HEMOGLOBIN 8.3 g/dL (12-16); IMMATURE GRANULOCYTES 0.2 % (0-5); LYMPHOCYTE ABS# 3.12 10x3/uL (1.18-3.74); LYMPHOCYTES 36.9 % (15-50); MCH 27.2 pg (26.0-34.0); MCHC 30.1 g/dL (31.0-37.0); MCV 90.5 fL (80.0-100.0); MEAN PLATELET VOLUME 8.5 fL (7.4-10.4); NEUTROPHIL ABS# 3.96 10x3/uL (1.56-6.13); NEUTROPHILS 46.9 % (40-80); PLATELET COUNT 321 10x3/uL (130-400); RBC 3.05 10x6/uL (4.00-5.40); RDW 14.6 % (11.5-14.5); WBC 8.5 10x3/uL (4.8-10.8)
[2021-01-20 06:28] LABS: CALC OSMOLALITY 277 mosm/kg (275-300); CALCIUM 8.6 mg/dL (8.5-10.1); CARBON DIOXIDE 27.4 mmol/L (21.0-32.0); CHLORIDE - SERUM 107 mmol/L (98-107); CREATININE - SERUM 0.7 mg/dL (0.6-1.3); GLUCOSE 98 mg/dL (74-106); POTASSIUM - SERUM 4.1 mmol/L (3.5-5.1); SODIUM 140 mmol/L (136-145); UREA NITROGEN 11 mg/dL (7-18); eGFR NON AFRICAN AMERICAN 89 mL/min (90-120)
--- NOTE | 2021-01-20 07:46 | NUR ---
PT IS RESTING IN BED WITH EYES CLOSED. RESPIRAITONS ARE EVEN AND UNLABORED. PT IS EASILY AROUSED WITH VERBAL STIMULATION AND IS AAO X 4 UPON AROUSAL. PT DENIES PRESENCE OF PAIN/N/V AT THIS TIME. SCAR TO RIGHT SHOULDER NOTED WITH REDNESS AND WARMTH AROUND THE AREA. PICC TO LEFT UPPER ARM INFUSING PER ORDER WITHOUT COMPROMISE. PT DENIES PRESENCE OF NUMBNESS/TINGLING TO BUE AND BLE. BED IS IN THE LOWEST POSITION. CALL LIGHT AND BEDSIDE TABLE ARE WITHIN REACH. SIDE RAILS X 2. INCENTIVE SPIROMETER AT BEDSIDE AND ENCOURAGED. PT VERBALIZES UNDERSTANDING AND DENUES FORTHER NEEDS. WILL CONT TO MONITOR.
[2021-01-20 09:11] VITALS: BP 145/55
--- NOTE | 2021-01-20 09:51 | NUR ---
PICC LINE DRESSING CHANGED USING SALES DEVELOPMENT CONSULTANT. PATIENT TOLERATED WELL.
--- NOTE | 2021-01-20 11:58 | MORECARE ---
CASE MANAGEMENT DISCHARGE SUMMARY PATIENT: DANIELLE GARCIA UNIT: [id number] ADM DATE: 01/17/21 AGE: 65 : 56 SEX: F ROOM/BED: D.2213 AUTHOR: NICOLETTEDOC PHYSICIAN: REFERRING PHYSICIAN: SALVATORE ASCENCIO DO DATE OF SERVICE: 01/20/21 Case Management Discharge Planning Summary DCP REVIEW SUMMARY ANTICIPATED D/C DATE: EXPECTED LOS : CASE STATUS: DCP Initiated INITIAL REVIEW: 01/17/2021 INITIAL REVIEWER: Christie Vu FINAL DISCHARGE DISPOSITION: : FINAL REVIEWER: FINAL REVIEW DATE: LACE: UPDATED BY: [email or web address]: Christie Vu on 01/18/21 14:37 CT QUESTION: ANSWER Length of Stay (Prior Admit): 4 to 6 Days Acute Admission: Inpatient Emergency Room visits during previous 6 months: 4 or more Visits DCP Focus Questions & Answers DCP REV -DCP Review Added on: 01/20/21 11:57 am QUESTION: ANSWER DCP Screen High Risk Factors: : None Walking limitation: Patient stated self rated walking limitation present? : No Age: : 46 - 65 Prior living environment: : Lives with others Disability ranking: : Grade 1: No significant disability DCP Evaluation Patient's ability to cope with chronic illness : d. No chronic illness Mental health screen: : No mental health history Would patient like to participate in any Care Coordination programs (if applicable): : Not applicable DCP Re-evaluation Would patient like to participate in any Care Coordination programs (if applicable): : Not applicable PROVIDER NETWORKING REVIEW DATE: 01/20/2021 SERVICE TYPE: Home Health Care REVIEWER: Christie Vu REVIEW DATE: 01/20/2021 SERVICE TYPE: Durable Medical Equipment REVIEWER: Christie Vu PATIENT: DANIELLE GARCIA ENCOUNTER: [id number] MEDICAL RECORD#: [id number] ADMISSION DATE: 01/17/2021 DISCHARGE DATE: ATTENDING MD: SALVATORE GUILLERMO : AGE: 65 MARITAL STATUS: M DC PLAN ID: [id number] FACILITY: [facility] PRINTED ON: 01/20/21 11:58 CT All edits/amendments must be made on the electronic document DICTATION DATE: 01/20/21 1158 SUPPLY CHAIN CONSULTANT: JOSÉ MIGUEL 01/20/21 1158 RPT#: [id number] DC DATE: STATUS: ADM IN [facility] [address] [place] [address] END OF REPORT
--- NOTE | 2021-01-20 12:10 | MORECARE ---
CASE MANAGEMENT DISCHARGE SUMMARY PATIENT: DANIELLE GARCIA UNIT: [id number] ADM DATE: 01/17/21 AGE: 65 : 56 SEX: F ROOM/BED: D.2213 AUTHOR: NICOLETTE,DOC PHYSICIAN: REFERRING PHYSICIAN: SALVATORE ASCENCIO DO DATE OF SERVICE: 01/20/21 Case Management Discharge Planning Summary COMMENTS ENTERED DATE: 01/20/21 12:02 CT COMMENT TYPE: Discharge Planning REVIEWER: Christie Vu CM met with patient at bedside after obtaining verbal consent. CM discussed availability / needs of home health, REHAB and medical equipment. Patient will need home IV antibiotics and home health for teaching. RAMILA signed [facility]. I have faxed referrals. Patient will discharge today or tomorrow pending iv med set up and approval. CM to follow and assist as needed. DCP REVIEW SUMMARY ANTICIPATED D/C DATE: EXPECTED LOS : CASE STATUS: DCP Initiated INITIAL REVIEW: 01/17/2021 INITIAL REVIEWER: Christie Vu FINAL DISCHARGE DISPOSITION: : FINAL REVIEWER: FINAL REVIEW DATE: LACE: UPDATED BY: [id number]: Christie Vu on 01/18/21 14:37 CT QUESTION: ANSWER Length of Stay (Prior Admit): 4 to 6 Days Acute Admission: Inpatient Emergency Room visits during previous 6 months: 4 or more Visits DCP Focus Questions & Answers DCP REV -DCP Review Added on: 01/20/21 11:57 am QUESTION: ANSWER DCP Screen High Risk Factors: : None Walking limitation: Patient stated self rated walking limitation present? : No Age: : 45 - 65 Prior living environment: : Lives with others Disability ranking: : Grade 1: No significant disability DCP Evaluation Patient's ability to cope with chronic illness : d. No chronic illness Mental health screen: : No mental health history Would patient like to participate in any Care Coordination programs (if applicable): : Not applicable Physical Status: : Independent with ADL's Partial Dependence, assistance required for: : Ambulation / Mobility Baseline cognitive status: : *Oriented to person, place, situation, time and present Baseline cognitive status: : Alert Living Arrangements: : Home with others Medication Management: : Patient states can read and understand medication labels [facility] Does Patient have transportation to get home and to follow-up medical appointments when discharged from the hospital? : Yes Comments: : PCP IS DR. MATAMOROS Does the patient have electricity at home? : Yes Does the patient have running water in their house? : Yes Equipment in use: : None Abuse/Neglect: : None Patient's current cognitive status: : *Oriented to person, place, situation, time and present Functional screen comments: : WILL NEED HH FOR IV INFUSION TEACHING Family / Caregiver's ability to cope with chronic illness: : a. Adequate (ability to meet patient's medical needs, ensures patient attends medical appts.) Does the patient have the ability to pay for or attain post discharge needs / services? : Yes Is there a likelihood that the patient will require additional services to return to the preadmission environment? : Yes Results of this evaluation have been discussed with: : Patient Comments: : [facility] FOR [facility] FOR HH DCP Re-evaluation Would patient like to participate in any Care Coordination programs (if applicable): : Not applicable PROVIDER NETWORKING REVIEW DATE: 01/20/2021 SERVICE TYPE: Home Health Care REVIEWER: Christie Vu REVIEW DATE: 01/20/2021 SERVICE TYPE: Durable Medical Equipment REVIEWER: Christie Vu PATIENT: DANIELLE GARCIA ENCOUNTER: [id number] MEDICAL RECORD#: [id number] ADMISSION DATE: 01/17/2021 DISCHARGE DATE: ATTENDING MD: SALVATORE GUILLERMO : AGE: 65 MARITAL STATUS: M DC PLAN ID: [id number] FACILITY: [facility] PRINTED ON: 01/20/21 12:10 CT All edits/amendments must be made on the electronic document DICTATION DATE: 01/20/211209 UTILITY OPERATOR YARN: JOSÉ MIGUEL 01/20/211209 RPT#: [id number] DC DATE: STATUS: ADM IN [facility] [address] [place] [address] END OF REPORT
[2021-01-20 12:57] VITALS: BP 109/61
[2021-01-20 17:07] VITALS: BP 140/60
[2021-01-20 18:10] VITALS: BP 152/55
--- NOTE | 2021-01-20 18:13 | NUR ---
PT REPORTS A FREQUENT NON PRODUCTIVE COUGH AND REQUESTS COUGH MEDICATION. AGUILAR MIXON APN PAGED.
--- NOTE | 2021-01-20 18:15 | NUR ---
AGUILAR MIXON APN RETURNED PAGE AND WAS NOTIFIED OF PT STATE AND REQUEST.
[2021-01-20 20:00] VITALS: BP 137/56
--- NOTE | 2021-01-20 20:00 | NUR ---
PT SITTING UP IN BED WITHOUT DISTRESS, AOX4. DENIES PAIN OR NEEDS AT THIS TIME. CL IN REACH, WILL CTM
[2021-01-21 04:00] VITALS: BP 141/51
[2021-01-21 05:34] LABS: BASOPHILS 0.5 % (0-2); EOSINOPHILS 8.5 % (0-7); HEMATOCRIT 27.1 % (36.0-48.0); HEMOGLOBIN 8.1 g/dL (12-16); IMMATURE GRANULOCYTES 0.3 % (0-5); LYMPHOCYTE ABS# 2.37 10x3/uL (1.18-3.74); LYMPHOCYTES 30.5 % (15-50); MCH 27.1 pg (26.0-34.0); MCHC 29.9 g/dL (31.0-37.0); MCV 90.6 fL (80.0-100.0); MEAN PLATELET VOLUME 8.4 fL (7.4-10.4); MONOCYTES 7.7 % (2-11); NEUTROPHIL ABS# 4.08 10x3/uL (1.56-6.13); NEUTROPHILS 52.5 % (40-80); PLATELET COUNT 296 10x3/uL (130-400); RBC 2.99 10x6/uL (4.00-5.40); RDW 14.7 % (11.5-14.5); WBC 7.8 10x3/uL (4.8-10.8)
[2021-01-21 05:51] LABS: CALC OSMOLALITY 278 mosm/kg (275-300); CALCIUM 8.2 mg/dL (8.5-10.1); CARBON DIOXIDE 28.4 mmol/L (21.0-32.0); CHLORIDE - SERUM 107 mmol/L (98-107); CREATININE - SERUM 0.7 mg/dL (0.6-1.3); GLUCOSE 116 mg/dL (74-106); POTASSIUM - SERUM 3.8 mmol/L (3.5-5.1); SODIUM 140 mmol/L (136-145); UREA NITROGEN 9 mg/dL (7-18); eGFR NON AFRICAN AMERICAN 89 mL/min (90-120)
--- NOTE | 2021-01-21 08:10 | NUR ---
I have reviewed this patient and I concur with the Shift Assessment completed by the Licensed Practical Nurse today this shift.
[2021-01-21 09:33] VITALS: BP 100/67
--- NOTE | 2021-01-21 10:02 | NUR ---
PATIENT SITTING UP AT BEDSIDE, STATES SHE IS READY FOR DC, INQUIRED ON LENGTH OF TIME MEDICATIONS RUN AND FREQUENCEY, WENT OVER VANC AND ORDER BID, EXPLAINED HOME HEALTH WILL COME AND ASSIST. NO OTHER NEEDS AT THIS TIME. CONTINUE WITH PLAN OF CARE
[2021-01-21] MEDS ORDERED: VANCOMYCIN 1 GM/1 G1 IV (12:37)
[2021-01-21 13:40] VITALS: BP 159/56
--- NOTE | 2021-01-24 14:49 | MORECARE ---
CASE MANAGEMENT DISCHARGE SUMMARY PATIENT: DANIELLE GARCIA UNIT: [id number] ADM DATE: 01/17/21 AGE: 66 : 57 SEX: F ROOM/BED: D.2213 AUTHOR: NICOLETTE,DOC PHYSICIAN: REFERRING PHYSICIAN: SALVATORE ASCENCIO DO DATE OF SERVICE: 01/24/21 Case Management Discharge Planning Summary CT Patient Name: DANIELLE GARCIA Attending MD : SALVATORE RUBIN Medical Record: [id number] Encounter : [id number] Facility : [address] [place] [address] Medical Admission Date : 114:01 Center Discharge Date : 01/21/[address] [place] [address] Date of : DC Plan ID : [id number] Age/Sex/Martia : 65/ F/M Printed on : 01/24/21 14:48 CT DCP Review Details Anticipated D/C: Expected LOS : Case Status : INITIATED - Initial Reviewe: [id number] - Christie Vu Initial Review: 01/17/2021 Planned Disposi: 06 - Discharged/Trans to Home Under Care of Organized Home Health Service in Anticipation of Skilled Care Final Discharge: - Final Reviewer : : Final Review : Comments CT Entered Date Type Reviewer 01/20/21 12:02 CT Discharge Planning Christie Vu Comment CM met with patient at bedside after obtaining verbal consent. CM discussed availability / needs of home health, REHAB and medical equipment. Patient will need home IV antibiotics and home health for teaching. RAMILA signed for care 4 and [facility]. I have faxed referrals. Patient will discharge today or tomorrow pending iv med set up and approval. CM to follow and assist as needed. DCP Focus Questions & Answers DCP Screen High Risk Factors: None Walking limitation: Patient stated self rated No walking limitation present? Age: 45 - 64 Prior living environment: Lives with others Disability ranking: Grade 1: No significant disability DCP Evaluation Family / Caregiver's ability to cope with chronic a. Adequate (ability to meet patient's illness: medical needs, ensures patient attends medical appts.) Patient's current cognitive status: *Oriented to person, place, situation, time and present Patient's ability to cope with chronic illness d. No chronic illness Does the patient have the ability to pay for or Yes attain post discharge needs / services? Physical Status: Independent with ADL's Is there a likelihood that the patient will Yes require additional services to return to the preadmission environment? Functional screen comments: WILL NEED HH FOR IV INFUSION TEACHING Living Arrangements: Home with others Partial Dependence, assistance required for: Ambulation / Mobility Results of this evaluation have been discussed Patient with: Baseline cognitive status: Alert Baseline cognitive status: *Oriented to person, place, situation, time and present Comments: PLAN FOR [facility] FOR HH Medication Management: Patient states can read and understand medication labels Pharmacy name(s): [facility] Does Patient have transportation to get home and Yes to follow-up medical appointments when discharged from the hospital? Comments: PCP IS DR. MATAMOROS Would patient like to participate in any Care Not applicable Coordination programs (if applicable): Does the patient have electricity at home? Yes Does the patient have running water in their Yes house? Equipment in use: None Mental health screen: No mental health history Abuse/Neglect: None DCP Re-evaluation Would patient like to participate in any Care Not applicable Coordination programs (if applicable): Provider Networking Review Da : 01/21/20ervice Ty: Home Health Care Reviewer : Christie Vu Referral [id number] Provider : [facility] Final Provi: N Review Da : 01/21/20ervice Ty: Durable Plastic Boat Patcher : Christie Vu Equipment Referral [id number] Provider : [facility] Final Provi: [facility] DANIELLE GARCIA MR#: [id number] /Age/Sex/[id number]-[id number] /65/F /M Attending Physician Name: BRENDA ASCENCIO [id number] Patient Account:[id number] [facility] Page -1 of 1 All edits/amendments must be made on the electronic document DICTATION DATE: 01/24/211447 CHIEF CLOTH FINISHING RANGE OPERATOR: JOSÉ MIGUEL 01/24/211447 RPT#: [id number] DC DATE:01/21/21 STATUS: DIS IN [facility] [address] [place] [address] END OF REPORT
== END 2021-01-21 18:11 | disposition home health service (06) | DRG 603 ==
LOC: D.MS 13:03
PROVIDERS: Family Medicine; General Practice; ADMIT Orthopaedic Surgery; ATTEND Orthopaedic Surgery
PROC: 05HY33Z Insertion of Infusion Device into Upper Vein, Percutaneous Approach (ICD-10-PCS; principal; 2021-01-18 08:57)
DX: L03.113 Cellulitis of right upper limb (principal); K21.9 Gastro-esophageal reflux disease without esophagitis; G25.81 Restless legs syndrome; G89.29 Other chronic pain; R73.03 Prediabetes; F17.200 Nicotine dependence, unspecified, uncomplicated; F60.89 Other specific personality disorders; F32.9 Major depressive disorder, single episode, unspecified; M19.90 Unspecified osteoarthritis, unspecified site; G62.9 Polyneuropathy, unspecified; Z86.19 Personal history of other infectious and parasitic diseases

== ENCOUNTER → 2021-01-24 10:22 | Outpatient (CLI) | payer MEDICARE ==
[2021-01-18 14:08] VITALS: BMI 30.1
[~2021-01-24 10:22] MED LIST changes: +VANCOMYCIN 1 GM/1 G1 IV
[2021-01-24 12:03] LABS: BASOPHILS 0.5 % (0-2); EOSINOPHILS 6.9 % (0-7); HEMATOCRIT 32.9 % (36.0-48.0); HEMOGLOBIN 9.8 g/dL (12-16); IMMATURE GRANULOCYTES 0.7 % (0-5); LYMPHOCYTE ABS# 2.93 10x3/uL (1.18-3.74); LYMPHOCYTES 27.6 % (15-50); MCH 27.4 pg (26.0-34.0); MCHC 29.8 g/dL (31.0-37.0); MCV 91.9 fL (80.0-100.0); MEAN PLATELET VOLUME 8.7 fL (7.4-10.4); MONOCYTES 6.4 % (2-11); NEUTROPHIL ABS# 6.17 10x3/uL (1.56-6.13); NEUTROPHILS 57.9 % (40-80); PLATELET COUNT 334 10x3/uL (130-400); RBC 3.58 10x6/uL (4.00-5.40); RDW 15.6 % (11.5-14.5); WBC 10.6 10x3/uL (4.8-10.8)
[2021-01-24 12:13] LABS: C-REACTIVE PROTEIN 2.3 mg/dL (0.0-0.9); CREATININE - SERUM 0.7 mg/dL (0.6-1.3); VANCOMYCIN - TROUGH 9.3 ug/mL (10.0-20.0)
[2021-01-24 14:02] LABS: ERYTHROCYTE SEDIMENTATION RATE 29 mm/hr (0-30)
== END | disposition home or self-care (01) ==
LOC: D.LABREF 10:22
PROVIDERS: ATTEND Orthopaedic Surgery
DX: L03.113 Cellulitis of right upper limb (principal); Z45.2 Encounter for adjustment and management of vascular access device

== ENCOUNTER → 2021-01-28 10:46 | Day surgery (SDC) | payer MEDICARE ==
[2021-01-18 14:08] VITALS: BMI 30.1
== END | disposition home or self-care (01) ==
LOC: D.RAD 10:46 → EDSTATUS 11:04
PROVIDERS: ATTEND Orthopaedic Surgery
DX: L03.319 Cellulitis of trunk, unspecified (principal)

== ENCOUNTER → 2021-02-01 10:48 | Outpatient (CLI) | payer MEDICARE ==
[2021-01-18 14:08] VITALS: BMI 30.1
[2021-02-01 11:23] LABS: BASOPHILS 0.5 % (0-2); EOSINOPHILS 3.7 % (0-7); HEMATOCRIT 30.1 % (36.0-48.0); HEMOGLOBIN 9.1 g/dL (12-16); IMMATURE GRANULOCYTES 0.5 % (0-5); LYMPHOCYTE ABS# 2.37 10x3/uL (1.18-3.74); LYMPHOCYTES 30.2 % (15-50); MCH 27.1 pg (26.0-34.0); MCHC 30.2 g/dL (31.0-37.0); MCV 89.6 fL (80.0-100.0); MEAN PLATELET VOLUME 9.2 fL (7.4-10.4); MONOCYTES 8.5 % (2-11); NEUTROPHIL ABS# 4.43 10x3/uL (1.56-6.13); NEUTROPHILS 56.6 % (40-80); RBC 3.36 10x6/uL (4.00-5.40); RDW 15.4 % (11.5-14.5); WBC 7.8 10x3/uL (4.8-10.8)
[2021-02-01 11:25] LABS: C-REACTIVE PROTEIN 1.3 mg/dL (0.0-0.9); CREATININE - SERUM 0.7 mg/dL (0.6-1.3); VANCOMYCIN - TROUGH 9.4 ug/mL (10.0-20.0)
[2021-02-01 11:38] LABS: PLATELET COUNT 408 10x3/uL (130-400)
[2021-02-01 14:31] LABS: ERYTHROCYTE SEDIMENTATION RATE 26 mm/hr (0-30)
== END | disposition home or self-care (01) ==
LOC: D.LABREF 10:48
PROVIDERS: ATTEND Orthopaedic Surgery
DX: L03.113 Cellulitis of right upper limb (principal)

== ENCOUNTER → 2021-02-07 18:42 | Outpatient (CLI) | payer MEDICARE ==
[2021-01-18 14:08] VITALS: BMI 30.1
[2021-02-07 20:26] LABS: C-REACTIVE PROTEIN 1.5 mg/dL (0.0-0.9); CREATININE - SERUM 0.7 mg/dL (0.6-1.3); VANCOMYCIN - TROUGH 6.9 ug/mL (10.0-20.0)
[2021-02-07 20:28] LABS: BASOPHILS 0.6 % (0-2); EOSINOPHILS 4.6 % (0-7); HEMATOCRIT 32.6 % (36.0-48.0); HEMOGLOBIN 9.8 g/dL (12-16); IMMATURE GRANULOCYTES 0.6 % (0-5); LYMPHOCYTE ABS# 2.75 10x3/uL (1.18-3.74); MCH 27.5 pg (26.0-34.0); MCHC 30.1 g/dL (31.0-37.0); MCV 91.3 fL (80.0-100.0); MEAN PLATELET VOLUME 9.2 fL (7.4-10.4); MONOCYTES 9.2 % (2-11); PLATELET COUNT 424 10x3/uL (130-400); RBC 3.57 10x6/uL (4.00-5.40); RDW 15.6 % (11.5-14.5); WBC 8.9 10x3/uL (4.8-10.8)
[2021-02-07 21:25] LABS: ERYTHROCYTE SEDIMENTATION RATE 20 mm/hr (0-30)
== END | disposition home or self-care (01) ==
LOC: D.LABREF 18:42
PROVIDERS: ATTEND Orthopaedic Surgery
DX: L03.113 Cellulitis of right upper limb (principal)

== ENCOUNTER 2021-02-11 11:01 | Emergency (ER) | payer MEDICARE ==
[~2021-02-11] VITALS: Ht 160 cm; Wt 76.4 kg
[2021-02-11 11:05] VITALS: BP 192/100; Ht 160 cm; Wt 76.4 kg
== END 2021-02-11 16:39 | disposition home or self-care (01) ==
LOC: D.ER 11:01
DX: T82.898A Other specified complication of vascular prosthetic devices, implants and grafts, initial encounter (principal); L03.113 Cellulitis of right upper limb; G62.9 Polyneuropathy, unspecified; K21.9 Gastro-esophageal reflux disease without esophagitis

== ENCOUNTER → 2021-02-14 18:23 | Outpatient (CLI) | payer MEDICARE ==
[2021-02-11 11:05] VITALS: BMI 29.8
[2021-02-14 19:24] LABS: BASOPHILS 0.6 % (0-2); EOSINOPHILS 3.4 % (0-7); HEMATOCRIT 31.9 % (36.0-48.0); HEMOGLOBIN 9.2 g/dL (12-16); IMMATURE GRANULOCYTES 0.1 % (0-5); LYMPHOCYTE ABS# 2.59 10x3/uL (1.18-3.74); LYMPHOCYTES 32.7 % (15-50); MCH 25.8 pg (26.0-34.0); MCHC 28.8 g/dL (31.0-37.0); MCV 89.4 fL (80.0-100.0); MEAN PLATELET VOLUME 9.2 fL (7.4-10.4); MONOCYTES 6.6 % (2-11); NEUTROPHIL ABS# 4.48 10x3/uL (1.56-6.13); NEUTROPHILS 56.6 % (40-80); PLATELET COUNT 360 10x3/uL (130-400); RBC 3.57 10x6/uL (4.00-5.40); RDW 15.7 % (11.5-14.5); WBC 7.9 10x3/uL (4.8-10.8)
[2021-02-14 19:40] LABS: C-REACTIVE PROTEIN 1.2 mg/dL (0.0-0.9); CREATININE - SERUM 0.8 mg/dL (0.6-1.3); VANCOMYCIN - TROUGH 17.5 ug/mL (10.0-20.0)
[2021-02-14 20:31] LABS: ERYTHROCYTE SEDIMENTATION RATE 18 mm/hr (0-30)
== END | disposition home or self-care (01) ==
LOC: D.LABREF 18:23
PROVIDERS: ATTEND Orthopaedic Surgery
DX: L03.113 Cellulitis of right upper limb (principal)

== ENCOUNTER → 2021-02-15 15:28 | Outpatient (CLI) | payer MEDICARE ==
[2021-02-11 11:05] VITALS: BMI 29.8
== END | disposition home or self-care (01) ==
LOC: D.LABREF 15:28
PROVIDERS: ATTEND Orthopaedic Surgery
DX: L03.113 Cellulitis of right upper limb (principal)

== ENCOUNTER → 2021-02-21 14:23 | Outpatient (CLI) | payer MEDICARE ==
[2021-02-11 11:05] VITALS: BMI 29.8
[2021-02-21 14:39] LABS: BASOPHILS 0.5 % (0-2); EOSINOPHILS 4.8 % (0-7); HEMATOCRIT 30.3 % (36.0-48.0); HEMOGLOBIN 9.1 g/dL (12-16); IMMATURE GRANULOCYTES 0.6 % (0-5); LYMPHOCYTE ABS# 2.35 10x3/uL (1.18-3.74); MCH 26.1 pg (26.0-34.0); MCV 87.1 fL (80.0-100.0); MEAN PLATELET VOLUME 9.3 fL (7.4-10.4); MONOCYTES 7.9 % (2-11); NEUTROPHILS 56.2 % (40-80); PLATELET COUNT 356 10x3/uL (130-400); RBC 3.48 10x6/uL (4.00-5.40); RDW 15.8 % (11.5-14.5); WBC 7.8 10x3/uL (4.8-10.8)
[2021-02-21 14:51] LABS: C-REACTIVE PROTEIN 0.8 mg/dL (0.0-0.9); CREATININE - SERUM 0.7 mg/dL (0.6-1.3); VANCOMYCIN - TROUGH 26.1 ug/mL (10.0-20.0)
[2021-02-21 15:41] LABS: ERYTHROCYTE SEDIMENTATION RATE 47 mm/hr (0-30)
== END | disposition home or self-care (01) ==
LOC: D.LABREF 14:23
PROVIDERS: ATTEND Orthopaedic Surgery
DX: L03.113 Cellulitis of right upper limb (principal)

== ENCOUNTER → 2021-02-28 18:41 | Outpatient (CLI) | payer MEDICARE ==
[2021-02-11 11:05] VITALS: BMI 29.8
[2021-02-28 19:49] LABS: C-REACTIVE PROTEIN 1.5 mg/dL (0.0-0.9); CREATININE - SERUM 0.8 mg/dL (0.6-1.3); VANCOMYCIN - TROUGH 25.8 ug/mL (10.0-20.0)
[2021-02-28 19:54] LABS: BASOPHILS 0.6 % (0-2); EOSINOPHILS 4.5 % (0-7); HEMATOCRIT 33.4 % (36.0-48.0); HEMOGLOBIN 9.7 g/dL (12-16); IMMATURE GRANULOCYTES 0.5 % (0-5); LYMPHOCYTE ABS# 2.19 10x3/uL (1.18-3.74); LYMPHOCYTES 28.1 % (15-50); MCH 25.8 pg (26.0-34.0); MCV 88.8 fL (80.0-100.0); MEAN PLATELET VOLUME 9.3 fL (7.4-10.4); MONOCYTES 6.7 % (2-11); NEUTROPHIL ABS# 4.64 10x3/uL (1.56-6.13); NEUTROPHILS 59.6 % (40-80); PLATELET COUNT 400 10x3/uL (130-400); RBC 3.76 10x6/uL (4.00-5.40); RDW 16.2 % (11.5-14.5); WBC 7.8 10x3/uL (4.8-10.8)
[2021-02-28 21:15] LABS: ERYTHROCYTE SEDIMENTATION RATE 16 mm/hr (0-30)
== END | disposition home or self-care (01) ==
LOC: D.LABREF 18:41
PROVIDERS: ATTEND Orthopaedic Surgery
DX: L03.113 Cellulitis of right upper limb (principal)

== ENCOUNTER → 2021-03-07 17:47 | Outpatient (CLI) | payer MEDICARE ==
[2021-02-11 11:05] VITALS: BMI 29.8
[2021-03-07 18:38] LABS: BASOPHILS 0.6 % (0-2); EOSINOPHILS 3.6 % (0-7); HEMATOCRIT 33.4 % (36.0-48.0); HEMOGLOBIN 9.9 g/dL (12-16); IMMATURE GRANULOCYTES 0.4 % (0-5); LYMPHOCYTE ABS# 2.46 10x3/uL (1.18-3.74); LYMPHOCYTES 29.6 % (15-50); MCH 25.5 pg (26.0-34.0); MCHC 29.6 g/dL (31.0-37.0); MCV 86.1 fL (80.0-100.0); MEAN PLATELET VOLUME 9.3 fL (7.4-10.4); MONOCYTES 7.7 % (2-11); NEUTROPHIL ABS# 4.83 10x3/uL (1.56-6.13); NEUTROPHILS 58.1 % (40-80); PLATELET COUNT 385 10x3/uL (130-400); RBC 3.88 10x6/uL (4.00-5.40); RDW 16.2 % (11.5-14.5); WBC 8.3 10x3/uL (4.8-10.8)
[2021-03-07 18:46] LABS: C-REACTIVE PROTEIN 2.5 mg/dL (0.0-0.9); CREATININE - SERUM 0.8 mg/dL (0.6-1.3); VANCOMYCIN - TROUGH 35.5 ug/mL (10.0-20.0)
[2021-03-07 20:22] LABS: ERYTHROCYTE SEDIMENTATION RATE 20 mm/hr (0-30)
== END | disposition home or self-care (01) ==
LOC: D.LABREF 17:47
PROVIDERS: ATTEND Orthopaedic Surgery
DX: L03.113 Cellulitis of right upper limb (principal)

== ENCOUNTER → 2021-03-14 17:44 | Outpatient (CLI) | payer MEDICARE ==
[2021-02-11 11:05] VITALS: BMI 29.8
[2021-03-14 18:05] LABS: BASOPHILS 1.4 % (0-2); EOSINOPHILS 3.6 % (0-7); HEMATOCRIT 33.9 % (36.0-48.0); HEMOGLOBIN 10.3 g/dL (12-16); LYMPHOCYTES 26.6 % (15-50); MCHC 30.4 g/dL (31.0-37.0); MCV 82.1 fL (80.0-100.0); MEAN PLATELET VOLUME 7.6 fL (7.4-10.4); MONOCYTES 6.6 % (2-11); NEUTROPHILS 61.8 % (40-80); PLATELET COUNT 397 10x3/uL (130-400); RBC 4.13 10x6/uL (4.00-5.40); RDW 17.7 % (11.5-14.5); WBC 8.5 10x3/uL (4.8-10.8)
[2021-03-14 18:23] LABS: C-REACTIVE PROTEIN 1.7 mg/dL (0.0-0.9); CREATININE - SERUM 1.3 mg/dL (0.6-1.3); VANCOMYCIN - TROUGH 23.5 ug/mL (10.0-20.0)
[2021-03-14 19:15] LABS: ERYTHROCYTE SEDIMENTATION RATE 13 mm/hr (0-30)
== END | disposition home or self-care (01) ==
LOC: D.LABREF 17:44
PROVIDERS: ATTEND Orthopaedic Surgery
DX: L03.113 Cellulitis of right upper limb (principal)

== ENCOUNTER → 2021-03-22 17:33 | Outpatient (CLI) | payer MEDICARE ==
[2021-02-11 11:05] VITALS: BMI 29.8
[2021-03-22 18:36] LABS: EOSINOPHILS 3.2 % (0-7); HEMATOCRIT 33.6 % (36.0-48.0); HEMOGLOBIN 10.2 g/dL (12-16); LYMPHOCYTES 29.1 % (15-50); MCH 24.5 pg (26.0-34.0); MCHC 30.4 g/dL (31.0-37.0); MCV 80.7 fL (80.0-100.0); MEAN PLATELET VOLUME 6.9 fL (7.4-10.4); MONOCYTES 7.4 % (2-11); NEUTROPHILS 59.3 % (40-80); PLATELET COUNT 379 10x3/uL (130-400); RBC 4.16 10x6/uL (4.00-5.40); WBC 8.8 10x3/uL (4.8-10.8)
[2021-03-22 18:51] LABS: CREATININE - SERUM 0.9 mg/dL (0.6-1.3)
[2021-03-22 19:36] LABS: ERYTHROCYTE SEDIMENTATION RATE 15 mm/hr (0-30)
== END | disposition home or self-care (01) ==
LOC: D.LABREF 17:33
PROVIDERS: ATTEND Orthopaedic Surgery
DX: L03.113 Cellulitis of right upper limb (principal)

== ENCOUNTER → 2021-03-29 12:03 | Outpatient (CLI) | payer MEDICARE ==
[2021-02-11 11:05] VITALS: BMI 29.8
[2021-03-29 12:49] LABS: BASOPHILS 0.4 % (0-2); EOSINOPHILS 1.3 % (0-7); HEMATOCRIT 33.5 % (36.0-48.0); IMMATURE GRANULOCYTES 0.4 % (0-5); LYMPHOCYTE ABS# 3.68 10x3/uL (1.18-3.74); MCH 25.3 pg (26.0-34.0); MCHC 29.9 g/dL (31.0-37.0); MCV 84.6 fL (80.0-100.0); MEAN PLATELET VOLUME 9.4 fL (7.4-10.4); MONOCYTES 6.4 % (2-11); NEUTROPHIL ABS# 7.55 10x3/uL (1.56-6.13); NEUTROPHILS 61.5 % (40-80); PLATELET COUNT 353 10x3/uL (130-400); RBC 3.96 10x6/uL (4.00-5.40); RDW 16.6 % (11.5-14.5); WBC 12.3 10x3/uL (4.8-10.8)
[2021-03-29 13:15] LABS: ERYTHROCYTE SEDIMENTATION RATE 17 mm/hr (0-30)
[2021-03-29 13:25] LABS: C-REACTIVE PROTEIN 0.9 mg/dL (0.0-0.9); CREATININE - SERUM 0.9 mg/dL (0.6-1.3); VANCOMYCIN - TROUGH 11.1 ug/mL (10.0-20.0)
== END | disposition home or self-care (01) ==
LOC: D.LABREF 12:03
PROVIDERS: ATTEND Family Medicine
DX: L03.113 Cellulitis of right upper limb (principal); Z45.2 Encounter for adjustment and management of vascular access device; Z79.2 Long term (current) use of antibiotics